=== PATIENT | female | born 1975 | race Caucasian/White ===

== ENCOUNTER 2020-05-26 09:57 | Outpatient (REF) | payer OTHER, SELFPAY ==
--- NOTE | ~2020-05-26 | MM_ITS ---
EXAMINATION: MM SCREENING DIGITAL BREAST TOMOSYNTHESIS, BILATERAL CLINICAL INFORMATION: Screening. Asymptomatic. Age 44. No prior breast imaging. Family history breast cancer, paternal grandmother. The lifetime risk of breast cancer based on the Tyrer-Cuzick Model is 20%. COMPARISON: None (current study represents initial baseline exam). TECHNIQUE: Digital breast tomosynthesis is performed in both the craniocaudal and mediolateral oblique views along with computer-aided detection (CAD). Synthesized 2D images are generated from the tomosynthesis. Additional right CC view is provided. FINDINGS: There are scattered areas of fibroglandular density (ACR BI-RADS breast composition Category b). There are no significant masses, abnormal calcifications, or other abnormalities. The axilla and skin contours are unremarkable. MM/MM tomosynthesis screening BI IMPRESSION: No mammographic evidence of malignancy. ASSESSMENT: BI-RADS 1: Negative RECOMMENDATION: Routine annual mammography screening. This patient's information was entered into a reminder system with a target due date for their next mammogram.
== END 2020-05-26 09:58 | disposition home or self-care (01) ==
LOC: HO.MAMMO 09:57
PROVIDERS: PCP Internal Medicine; Visit Provider Internal Medicine
DX: Z12.31 Encounter for screening mammogram for malignant neoplasm of breast (principal)
CPT/HCPCS: 77063; 77067

== ENCOUNTER 2021-02-07 11:02 | Outpatient (REF) | payer OTHER, SELFPAY ==
[2021-02-07 11:08] LABS: MANUAL DIFF FLAG NO
[2021-02-07 11:38] LABS: Basophils Absolute Auto 0.1 X10*3/uL (0.0-0.2); Basophils Percent Auto 1.7 % (0-2); Eosinophils Absolute Auto 0.2 X10*3/uL (0.0-0.4); Eosinophils Percent Auto 2.8 % (0-4); Hemoglobin 10.1 g/dl (12.0-16.0); Imm Gran Abs Auto 0.01 X10*3/uL (0.00-0.03); Imm Gran Pct Auto 0.2 % (0.0-0.4); Lymphocytes Absolute Auto 1.4 X10*3/uL (1.2-4.9); Lymphocytes Percent Auto 22.8 % (20-40); Mean Corpuscular HGB Conc 30.6 g/dl (31.0-35.0); Mean Corpuscular Volume 78.6 fL (80.0-98.0); Mean Platelet Volume 10.7 fL (9.4-12.3); Monocytes Absolute Auto 0.5 X10*3/uL (0.1-1.2); Monocytes Percent Auto 8.5 % (2-11); Neutrophils Absolute Auto 3.9 x10*3/uL (2.0-8.3); Platelet Count 324 X10*3/uL (160-400); Red Cell Distribution Width 15.8 % (11.0-16.0)
[2021-02-07 11:48] LABS: Appearance Urine HAZY; Color Urine YELLOW; Glucose Urine UA NEG (NEG); Leukocyte Esterase Urine TRACE (NEG); Nitrite Urine NEG (NEG); PH 5.5 (5.0-8.0); Specific Gravity - Urine >= 1.030 (1.005-1.025); Urine Blood NEG (NEG); Urine Ketones NEG (NEG); Urine Protein NEG (NEG-TRACE)
[2021-02-07 12:18] LABS: Bacteria Urine TRACE /LPF; RBC Urine 0 /HPF (0); Squamous Epithelial Cell Urine 1+ /LPF
[2021-02-07 12:58] LABS: Alanine Aminotransferase 13 U/L (0-31); Albumin Level 4.2 g/dL (3.5-5.0); Alkaline Phosphatase 67 U/L (39-117); Anion Gap 13 (12-20); Aspartate Amino Transferase 16 U/L (5-31); Bilirubin Total 0.2 mg/dL (0.0-1.0); Blood Urea Nitrogen 15 mg/dL (9-16); Calcium 9.2 mg/dL (8.4-10.2); Carbon Dioxide 22 mmol/L (22-29); Chloride 106 mmol/L (96-108); Cholesterol 221 mg/dL; Estimated Glomerular Filt Rate > 60; Glucose Random 99 mg/dL (60-115); HDL Cholesterol 45 mg/dL; Iron 22 mcg/dL (30-160); LDL Cholesterol Calculated 150 mg/dl; Percent Iron Saturation 5 % (15-50); Potassium 4.4 mmol/L (3.3-5.1); Sodium 137 mmol/L (135-145); Total Iron Binding Capacity 441 mcg/dL (228-428); Total Protein 7.2 g/dL (6.5-8.0); Triglycerides 132 mg/dL; Unsaturated Iron Binding 419 ug/dL
[2021-02-07 13:19] LABS: TSH reflex Free T4 4.14 uIU/mL (0.32-4.0)
[2021-02-07 14:01] LABS: Reflex LDLD? No
[2021-02-07 14:07] LABS: Free T4 (Free Thyroxine) 0.79 ng/dL (0.71-1.85)
== END 2021-02-07 11:03 | disposition home or self-care (01) ==
LOC: HO.LNP 11:02
PROVIDERS: Visit Provider Internal Medicine
DX: Z00.00 Encounter for general adult medical examination without abnormal findings (principal); R94.5 Abnormal results of liver function studies; E61.1 Iron deficiency; E03.9 Hypothyroidism, unspecified; E78.00 Pure hypercholesterolemia, unspecified
CPT/HCPCS: 80053; 80061; 81001; 83540; 84439; 84443; 85025

== ENCOUNTER 2021-09-15 11:32 | Outpatient (REF) | payer OTHER, SELFPAY ==
[2021-09-15 11:36] LABS: MANUAL DIFF FLAG NO
[2021-09-15 12:38] LABS: Basophils Absolute Auto 0.1 X10*3/uL (0.0-0.2); Basophils Percent Auto 1.5 % (0-2); Eosinophils Absolute Auto 0.3 X10*3/uL (0.0-0.4); Eosinophils Percent Auto 4.3 % (0-4); Hematocrit 36.2 % (37.0-47.0); Hemoglobin 10.3 g/dl (12.0-16.0); Imm Gran Abs Auto 0.01 X10*3/uL (0.00-0.03); Imm Gran Pct Auto 0.1 % (0.0-0.4); Lymphocytes Absolute Auto 1.9 X10*3/uL (1.2-4.9); Lymphocytes Percent Auto 25.9 % (20-40); Mean Corpuscular HGB Conc 28.5 g/dl (31.0-35.0); Mean Corpuscular Hemoglobin 21.7 pg (27.0-33.0); Mean Corpuscular Volume 76.4 fL (80.0-98.0); Mean Platelet Volume 10.8 fL (9.4-12.3); Monocytes Absolute Auto 0.8 X10*3/uL (0.1-1.2); Monocytes Percent Auto 10.4 % (2-11); Neutrophils Absolute Auto 4.3 x10*3/uL (2.0-8.3); Neutrophils Percent Auto 57.8 % (45-73); Platelet Count 479 X10*3/uL (160-400); Red Blood Count 4.74 X10*6/uL (4.20-5.50); Red Cell Distribution Width 17.2 % (11.0-16.0); White Blood Count 7.4 X10*3/uL (4.8-10.8)
[2021-09-15 13:03] LABS: Iron 23 mcg/dL (30-160)
[2021-09-15 13:30] LABS: Percent Iron Saturation 5 % (15-50); Total Iron Binding Capacity 462 mcg/dL (228-428); Unsaturated Iron Binding 439 ug/dL
== END 2021-09-15 11:33 | disposition home or self-care (01) ==
LOC: HO.LNP 11:32
PROVIDERS: Visit Provider Internal Medicine
DX: D50.0 Iron deficiency anemia secondary to blood loss (chronic) (principal)
CPT/HCPCS: 83540; 85025

== ENCOUNTER 2022-03-08 11:23 | Outpatient (REF) | payer OTHER, SELFPAY ==
[2022-03-08 11:28] LABS: MANUAL DIFF FLAG NO
[2022-03-08 11:55] LABS: Basophils Absolute Auto 0.1 X10*3/uL (0.0-0.2); Basophils Percent Auto 1.5 % (0-2); Eosinophils Absolute Auto 0.3 X10*3/uL (0.0-0.4); Eosinophils Percent Auto 3.3 % (0-4); Hematocrit 39.8 % (37.0-47.0); Hemoglobin 12.2 g/dl (12.0-16.0); Imm Gran Abs Auto 0.02 X10*3/uL (0.00-0.03); Imm Gran Pct Auto 0.2 % (0.0-0.4); Lymphocytes Absolute Auto 1.8 X10*3/uL (1.2-4.9); Lymphocytes Percent Auto 21.3 % (20-40); Mean Corpuscular HGB Conc 30.7 g/dl (31.0-35.0); Mean Corpuscular Hemoglobin 24.7 pg (27.0-33.0); Mean Corpuscular Volume 80.7 fL (80.0-98.0); Mean Platelet Volume 11.4 fL (9.4-12.3); Monocytes Absolute Auto 0.8 X10*3/uL (0.1-1.2); Monocytes Percent Auto 9.6 % (2-11); Neutrophils Absolute Auto 5.4 x10*3/uL (2.0-8.3); Neutrophils Percent Auto 64.1 % (45-73); Platelet Count 324 X10*3/uL (160-400); Red Blood Count 4.93 X10*6/uL (4.20-5.50); Red Cell Distribution Width 14.9 % (11.0-16.0); White Blood Count 8.5 X10*3/uL (4.8-10.8)
[2022-03-08 11:57] LABS: Appearance Urine Turbid; Color Urine Yellow; Glucose Urine UA Negative (Negative); Leukocyte Esterase Urine Large (3+) (Negative); Nitrite Urine Negative (Negative); PH 5.5 (5.0-9.0); Specific Gravity - Urine 1.025 (1.005-1.025); UMIC TRIGGER UA YES; Urine Blood Negative (Negative); Urine Ketones Negative (Negative); Urine Protein Trace mg/dL (Neg-Trace)
[2022-03-08 12:01] LABS: Bacteria Urine 4+ (None Seen); Hyaline Casts Urine 0-2 /LPF (0-2); Squamous Epithelial Cell Urine >20 /HPF (0-2); WBC Urine >50 /HPF (0-5)
[2022-03-08 14:04] LABS: Alanine Aminotransferase 13 U/L (0-31); Albumin Level 4.7 g/dL (3.5-5.0); Alkaline Phosphatase 75 U/L (39-117); Anion Gap 13 (12-20); Aspartate Amino Transferase 16 U/L (5-31); Bilirubin Total 0.4 mg/dL (0.0-1.0); Blood Urea Nitrogen 13 mg/dL (9-16); Calcium 9.8 mg/dL (8.4-10.2); Carbon Dioxide 23 mmol/L (22-29); Chloride 105 mmol/L (96-108); Cholesterol 242 mg/dL; Estimated Glomerular Filt Rate > 60; Glucose Fasting 97 mg/dL (60-99); HDL Cholesterol 47 mg/dL; Iron 30 mcg/dL (30-160); LDL Cholesterol Calculated 158 mg/dl; Percent Iron Saturation 7 % (15-50); Potassium 4.1 mmol/L (3.3-5.1); Sodium 137 mmol/L (135-145); TSH reflex Free T4 5.92 uIU/mL (0.32-4.0); Total Iron Binding Capacity 416 mcg/dL (228-428); Triglycerides 188 mg/dL; Unsaturated Iron Binding 386 ug/dL
[2022-03-08 15:31] LABS: Free T4 (Free Thyroxine) 0.84 ng/dL (0.71-1.85)
== END 2022-03-08 11:24 | disposition home or self-care (01) ==
LOC: HO.LNP 11:23
PROVIDERS: Visit Provider Internal Medicine
DX: R31.9 Hematuria, unspecified (principal)
CPT/HCPCS: 80053; 80061; 81001; 83540; 84439; 84443; 85025; 87086

== ENCOUNTER 2022-03-22 17:54 | Outpatient (REF) | payer OTHER, SELFPAY | END 2022-03-22 17:55 | disposition home or self-care (01) | LOC: HO.LNP 17:54 | PROVIDERS: Visit Provider Internal Medicine | DX: R31.9 Hematuria, unspecified (principal) | CPT/HCPCS: 87086 ==

== ENCOUNTER 2022-04-12 12:46 | Outpatient (REF) | payer OTHER, SELFPAY ==
--- NOTE | ~2022-04-12 | MM_ITS ---
EXAMINATION: MM SCREENING DIGITAL BREAST TOMOSYNTHESIS, BILATERAL CLINICAL INFORMATION: Screening. Asymptomatic. The lifetime risk of breast cancer based on the Tyrer-Cuzick Model is 19%. COMPARISON: Mammography: 05/26/2020. TECHNIQUE: Digital breast tomosynthesis is performed in both the craniocaudal and mediolateral oblique views along with computer-aided detection (CAD). Synthesized 2D images are generated from the tomosynthesis. FINDINGS: The breasts are heterogeneously dense, which may obscure small masses (ACR BI-RADS breast composition Category c). No suspicious right breast findings are evident. No suspicious grouping of microcalcifications or abnormal dominant mass. Within the medial aspect of the left breast there is an asymmetric density not definitely seen on prior study for which spot compression view is recommended. On craniocaudal view within the deep aspect of the left breast there is an oval density which is difficult to see but may lie within the superior aspect of the breast, measuring approximately 9 x 7 mm in size and lying approximately 7.5 cm from the nipple. Spot compression view of this as well as possible ultrasound, if it persists, is recommended. MM/MM tomosynthesis screening BI IMPRESSION: Left breast findings for further evaluation, as described. ASSESSMENT: BI-RADS 0: Incomplete - Need additional imaging evaluation. RECOMMENDATION: 1. Additional views of the left breast. 2. Targeted ultrasound if warranted after review of the additional views. 3. Radiology department staff will contact the patient for additional imaging. This patient's information was entered into a reminder system with a target due date for their next mammogram.
[2022-04-12 10:55] LABS: Appearance Urine Cloudy; Color Urine Yellow; Glucose Urine UA Negative (Negative); Leukocyte Esterase Urine Moderate (2+) (Negative); Nitrite Urine Negative (Negative); Specific Gravity - Urine >= 1.030 (1.005-1.025); UMIC TRIGGER UACC YES; Urine Blood Negative (Negative); Urine Ketones Trace mg/dL (Negative); Urine Protein Trace mg/dL (Neg-Trace)
[2022-04-12 11:00] LABS: Bacteria Urine 4+ (None Seen); Hyaline Casts Urine 0-2 /LPF (0-2); UACC Culture Trigger YES; WBC Urine >50 /HPF (0-5)
== END 2022-04-12 12:47 | disposition home or self-care (01) ==
LOC: HO.MAMMO 12:46
PROVIDERS: PCP Internal Medicine; Visit Provider Internal Medicine
DX: R31.9 Hematuria, unspecified (principal); Z12.31 Encounter for screening mammogram for malignant neoplasm of breast
CPT/HCPCS: 77063; 77067; 81001; 87086

== ENCOUNTER 2022-05-02 15:00 | Outpatient (REF) | payer OTHER, SELFPAY ==
--- NOTE | ~2022-05-02 | MM_ITS ---
EXAMINATION: MM DIAGNOSTIC DIGITAL, LEFT WITH TOMOSYNTHESIS US BREAST TARGETED, LEFT CLINICAL INFORMATION: Asymmetric density medial aspect of the left breast as well as circumscribed density deep nipple line region on craniocaudal view and probably superior. COMPARISON: Mammography: 04/12/2022 and 05/26/2020. TECHNIQUE: Digital breast tomosynthesis is performed. 2D images are generated from the tomosynthesis. The following views are obtained: Spot compression craniocaudal view of the left breast and 90 degree mediolateral view. Targeted left breast ultrasound. FINDINGS: The breast parenchyma is a mixture of fibroglandular tissue (ACR BI-RADS breast density category B) MAMMOGRAM: The questioned asymmetric density about the medial aspect of the left breast compresses out and is seen to have represented superimposition of fibroglandular tissue. There is persistence of a partially circumscribed density deep left breast probably superior at approximately 12 o'clock position. ULTRASOUND: Targeted left breast ultrasound demonstrated at the 1 o'clock position, 8 cm from nipple a simple appearing cyst measuring 8 x 3 x 6 mm in size. There is a smooth back wall and increased through sound transmission present. No internal vascularity is seen. The lesion is wider than it is tall. At the 11 o'clock position 7 cm from nipple there appears to be another small cyst measuring 6 x 3 x 5 mm in size with smooth back wall and increased through sound transmission. Results are discussed with the patient at time of visit. MM/MM tomosynthesis added views L IMPRESSION: No mammographic evidence of malignancy. Left breast cysts. ASSESSMENT: BI-RADS 2: Benign RECOMMENDATION: Routine annual mammography screening. This patient's information was entered into a reminder system with a target due date for their next mammogram.
== END 2022-05-02 15:01 | disposition home or self-care (01) ==
LOC: HO.MAMMO 15:00
PROVIDERS: PCP Internal Medicine; Visit Provider Internal Medicine
DX: N64.89 Other specified disorders of breast (principal)
CPT/HCPCS: 76642; 77061; 77065

== ENCOUNTER 2022-07-13 11:58 | Outpatient (REF) | payer OTHER, SELFPAY ==
[2022-07-13 12:25] LABS: Appearance Urine Cloudy; Color Urine Yellow; Glucose Urine UA Negative (Negative); Leukocyte Esterase Urine Moderate (2+) (Negative); Nitrite Urine Negative (Negative); PH 5.5 (5.0-9.0); UMIC TRIGGER UACC YES; Urine Blood Negative (Negative); Urine Ketones Negative (Negative); Urine Protein Negative (Neg-Trace)
[2022-07-13 12:38] LABS: Bacteria Urine 4+ (None Seen); Hyaline Casts Urine 0-2 /LPF (0-2); UACC Culture Trigger YES; WBC Urine 21-50 /HPF (0-5)
[2022-07-13 12:59] LABS: TSH reflex Free T4 6.73 uIU/mL (0.32-4.0)
[2022-07-13 13:40] LABS: Free T4 (Free Thyroxine) 0.79 ng/dL (0.71-1.85)
== END 2022-07-13 11:59 | disposition home or self-care (01) ==
LOC: HO.LNP 11:58
PROVIDERS: Visit Provider Internal Medicine
DX: G43.009 Migraine without aura, not intractable, without status migrainosus (principal); E03.9 Hypothyroidism, unspecified; R31.9 Hematuria, unspecified
CPT/HCPCS: 81001; 84439; 84443; 87086

== ENCOUNTER 2022-08-03 10:27 | Outpatient (REF) | payer OTHER, SELFPAY ==
[2022-08-03 10:29] LABS: MANUAL DIFF FLAG NO
[2022-08-03 10:50] LABS: Basophils Absolute Auto 0.1 X10*3/uL (0.0-0.2); Basophils Percent Auto 1.6 % (0-2); Eosinophils Absolute Auto 0.2 X10*3/uL (0.0-0.4); Eosinophils Percent Auto 3.1 % (0-4); Hematocrit 34.4 % (37.0-47.0); Imm Gran Abs Auto 0.01 X10*3/uL (0.00-0.03); Imm Gran Pct Auto 0.2 % (0.0-0.4); Lymphocytes Absolute Auto 1.3 X10*3/uL (1.2-4.9); Lymphocytes Percent Auto 20.6 % (20-40); Mean Corpuscular Hemoglobin 25.6 pg (27.0-33.0); Mean Corpuscular Volume 80.2 fL (80.0-98.0); Mean Platelet Volume 10.5 fL (9.4-12.3); Monocytes Absolute Auto 0.5 X10*3/uL (0.1-1.2); Monocytes Percent Auto 7.4 % (2-11); Neutrophils Absolute Auto 4.2 x10*3/uL (2.0-8.3); Neutrophils Percent Auto 67.1 % (45-73); Platelet Count 344 X10*3/uL (160-400); Red Blood Count 4.29 X10*6/uL (4.20-5.50); Red Cell Distribution Width 14.7 % (11.0-16.0); White Blood Count 6.2 X10*3/uL (4.8-10.8)
[2022-08-03 11:11] LABS: Appearance Urine Cloudy; Color Urine Yellow; Glucose Urine UA Negative (Negative); Leukocyte Esterase Urine Moderate (2+) (Negative); Nitrite Urine Negative (Negative); PH 5.5 (5.0-9.0); UMIC TRIGGER UA YES; Urine Blood Negative (Negative); Urine Ketones Negative (Negative); Urine Protein Negative (Neg-Trace)
[2022-08-03 11:14] LABS: Iron 38 mcg/dL (30-160); Percent Iron Saturation 11 % (15-50); Total Iron Binding Capacity 360 mcg/dL (228-428); Unsaturated Iron Binding 322 ug/dL
[2022-08-03 11:18] LABS: Bacteria Urine 3+ (None Seen); Hyaline Casts Urine 0-2 /LPF (0-2); WBC Urine 21-50 /HPF (0-5)
== END 2022-08-03 10:28 | disposition home or self-care (01) ==
LOC: HO.LNP 10:27
PROVIDERS: Visit Provider Internal Medicine
DX: D50.0 Iron deficiency anemia secondary to blood loss (chronic) (principal); R31.9 Hematuria, unspecified
CPT/HCPCS: 81001; 81003; 83540; 85025

== ENCOUNTER 2022-09-04 14:43 | Outpatient (REF) | payer OTHER, SELFPAY ==
[2022-09-04 14:48] LABS: MANUAL DIFF FLAG NO
[2022-09-04 14:55] LABS: Basophils Absolute Auto 0.1 X10*3/uL (0.0-0.2); Basophils Percent Auto 1.9 % (0-2); Eosinophils Absolute Auto 0.2 X10*3/uL (0.0-0.4); Eosinophils Percent Auto 2.9 % (0-4); Hematocrit 36.7 % (37.0-47.0); Hemoglobin 11.3 g/dl (12.0-16.0); Imm Gran Abs Auto 0.02 X10*3/uL (0.00-0.03); Imm Gran Pct Auto 0.3 % (0.0-0.4); Lymphocytes Absolute Auto 1.8 X10*3/uL (1.2-4.9); Lymphocytes Percent Auto 25.4 % (20-40); Mean Corpuscular HGB Conc 30.8 g/dl (31.0-35.0); Mean Corpuscular Volume 84.6 fL (80.0-98.0); Mean Platelet Volume 11.4 fL (9.4-12.3); Monocytes Absolute Auto 0.6 X10*3/uL (0.1-1.2); Monocytes Percent Auto 8.5 % (2-11); Neutrophils Absolute Auto 4.3 x10*3/uL (2.0-8.3); Platelet Count 379 X10*3/uL (160-400); Red Blood Count 4.34 X10*6/uL (4.20-5.50); Red Cell Distribution Width 15.4 % (11.0-16.0)
== END 2022-09-04 14:44 | disposition home or self-care (01) ==
LOC: HO.LNP 14:43
PROVIDERS: Visit Provider Internal Medicine
DX: D50.0 Iron deficiency anemia secondary to blood loss (chronic) (principal)
CPT/HCPCS: 85025

== ENCOUNTER 2022-10-15 11:22 | Outpatient (REF) | payer OTHER, SELFPAY ==
[2022-10-15 11:52] LABS: Appearance Urine Clear; Color Urine Yellow; Glucose Urine UA Negative (Negative); Leukocyte Esterase Urine Large (3+) (Negative); Nitrite Urine Negative (Negative); PH 6.5 (5.0-9.0); Specific Gravity - Urine 1.015 (1.005-1.025); UMIC TRIGGER UACC YES; Urine Blood Negative (Negative); Urine Ketones Negative (Negative); Urine Protein Negative (Neg-Trace)
[2022-10-15 12:17] LABS: Bacteria Urine 2+ (None Seen); Hyaline Casts Urine 0-2 /LPF (0-2); UACC Culture Trigger YES; WBC Urine 0-5 /HPF (0-5)
== END 2022-10-15 11:23 | disposition home or self-care (01) ==
LOC: HO.LNP 11:22
PROVIDERS: Visit Provider Internal Medicine
DX: R31.9 Hematuria, unspecified (principal)
CPT/HCPCS: 81001; 87086

== ENCOUNTER 2022-11-12 10:40 | Outpatient (REF) | payer OTHER, SELFPAY ==
[2022-11-12 10:43] LABS: MANUAL DIFF FLAG NO
[2022-11-12 10:53] LABS: Basophils Absolute Auto 0.1 X10*3/uL (0.0-0.2); Basophils Percent Auto 1.7 % (0-2); Eosinophils Absolute Auto 0.3 X10*3/uL (0.0-0.4); Eosinophils Percent Auto 3.8 % (0-4); Hematocrit 38.7 % (37.0-47.0); Hemoglobin 12.5 g/dl (12.0-16.0); Imm Gran Abs Auto 0.03 X10*3/uL (0.00-0.03); Imm Gran Pct Auto 0.4 % (0.0-0.4); Lymphocytes Absolute Auto 1.9 X10*3/uL (1.2-4.9); Lymphocytes Percent Auto 23.1 % (20-40); Mean Corpuscular HGB Conc 32.3 g/dl (31.0-35.0); Mean Corpuscular Volume 83.6 fL (80.0-98.0); Monocytes Absolute Auto 0.7 X10*3/uL (0.1-1.2); Monocytes Percent Auto 8.9 % (2-11); Neutrophils Absolute Auto 5.1 x10*3/uL (2.0-8.3); Neutrophils Percent Auto 62.1 % (45-73); Platelet Count 352 X10*3/uL (160-400); Red Blood Count 4.63 X10*6/uL (4.20-5.50); Red Cell Distribution Width 14.6 % (11.0-16.0); White Blood Count 8.2 X10*3/uL (4.8-10.8)
[2022-11-12 11:18] LABS: Iron 59 mcg/dL (30-160); Percent Iron Saturation 15 % (15-50); Total Iron Binding Capacity 397 mcg/dL (228-428); Unsaturated Iron Binding 338 ug/dL
[2022-11-12 11:32] LABS: TSH reflex Free T4 6.85 uIU/mL (0.32-4.0)
[2022-11-12 12:16] LABS: Free T4 (Free Thyroxine) 0.68 ng/dL (0.71-1.85)
== END 2022-11-12 10:41 | disposition home or self-care (01) ==
LOC: HO.LNP 10:40
PROVIDERS: Visit Provider Internal Medicine
DX: D50.0 Iron deficiency anemia secondary to blood loss (chronic) (principal); E03.9 Hypothyroidism, unspecified
CPT/HCPCS: 83540; 84439; 84443; 85025

== ENCOUNTER 2023-03-19 11:07 | Outpatient (REF) | payer OTHER, SELFPAY ==
[2023-03-19 11:14] LABS: MANUAL DIFF FLAG NO
[2023-03-19 11:59] LABS: Basophils Absolute Auto 0.1 X10*3/uL (0.0-0.2); Basophils Percent Auto 1.5 % (0-2); Eosinophils Absolute Auto 0.3 X10*3/uL (0.0-0.4); Eosinophils Percent Auto 3.6 % (0-4); Hematocrit 38.1 % (37.0-47.0); Hemoglobin 11.8 g/dl (12.0-16.0); Imm Gran Abs Auto 0.02 X10*3/uL (0.00-0.03); Imm Gran Pct Auto 0.2 % (0.0-0.4); Lymphocytes Absolute Auto 2.1 X10*3/uL (1.2-4.9); Lymphocytes Percent Auto 23.8 % (20-40); Mean Corpuscular Hemoglobin 26.7 pg (27.0-33.0); Mean Corpuscular Volume 86.2 fL (80.0-98.0); Mean Platelet Volume 11.6 fL (9.4-12.3); Monocytes Absolute Auto 0.8 X10*3/uL (0.1-1.2); Monocytes Percent Auto 9.5 % (2-11); Neutrophils Absolute Auto 5.4 x10*3/uL (2.0-8.3); Neutrophils Percent Auto 61.4 % (45-73); Platelet Count 411 X10*3/uL (160-400); Red Blood Count 4.42 X10*6/uL (4.20-5.50); Red Cell Distribution Width 13.3 % (11.0-16.0); White Blood Count 8.7 X10*3/uL (4.8-10.8)
[2023-03-19 12:02] LABS: Appearance Urine Cloudy; Color Urine Yellow; Glucose Urine UA Negative (Negative); Leukocyte Esterase Urine Small (1+) (Negative); Nitrite Urine Negative (Negative); Specific Gravity - Urine >= 1.030 (1.005-1.025); UMIC TRIGGER UACC YES; Urine Blood Negative (Negative); Urine Ketones Negative (Negative); Urine Protein Negative (Neg-Trace)
[2023-03-19 12:05] LABS: Bacteria Urine Trace (None Seen); Hyaline Casts Urine 0-2 /LPF (0-2); RBC Urine 0-2 /HPF (0-2); UACC Culture Trigger YES; WBC Urine >50 /HPF (0-5)
[2023-03-19 12:17] LABS: Alanine Aminotransferase 28 U/L (0-31); Albumin Level 4.2 g/dL (3.5-5.0); Alkaline Phosphatase 81 U/L (39-117); Anion Gap 15 (12-20); Aspartate Amino Transferase 31 U/L (5-31); Bilirubin Total 0.2 mg/dL (0.0-1.0); Blood Urea Nitrogen 10 mg/dL (9-16); Calcium 9.5 mg/dL (8.4-10.2); Carbon Dioxide 25 mmol/L (22-29); Chloride 106 mmol/L (96-108); Cholesterol 192 mg/dL (<200); Estimated Glomerular Filt Rate > 60; Glucose Fasting 99 mg/dL (60-99); HDL Cholesterol 36 mg/dL (>40); Iron 32 mcg/dL (30-160); LDL Cholesterol Calculated 120 mg/dL (<100); Percent Iron Saturation 10 % (15-50); Potassium 4.1 mmol/L (3.3-5.1); Sodium 142 mmol/L (135-145); Total Iron Binding Capacity 331 mcg/dL (228-428); Triglycerides 184 mg/dL (<150); Unsaturated Iron Binding 299 ug/dL
[2023-03-19 12:33] LABS: TSH reflex Free T4 3.99 uIU/mL (0.32-4.0)
== END 2023-03-19 11:08 | disposition home or self-care (01) ==
LOC: HO.LNP 11:07
PROVIDERS: Visit Provider Internal Medicine
DX: Z00.00 Encounter for general adult medical examination without abnormal findings (principal); E03.9 Hypothyroidism, unspecified; D50.0 Iron deficiency anemia secondary to blood loss (chronic); E78.00 Pure hypercholesterolemia, unspecified; R82.90 Unspecified abnormal findings in urine
CPT/HCPCS: 80053; 80061; 81001; 83540; 84443; 85025; 87086; 87147

== ENCOUNTER 2023-04-23 10:26 | Outpatient (REF) | payer OTHER, SELFPAY ==
--- NOTE | ~2023-04-23 | MM_ITS ---
EXAMINATION: MM SCREENING DIGITAL BREAST TOMOSYNTHESIS, BILATERAL CLINICAL INFORMATION: Screening. Asymptomatic. COMPARISON: Mammography: This study is compared with prior exams dating back to 2020. TECHNIQUE: Digital breast tomosynthesis is performed in both the craniocaudal and mediolateral oblique views along with computer-aided detection (CAD). Synthesized 2D images are generated from the tomosynthesis. FINDINGS: The breasts are heterogeneously dense, which may obscure small masses (ACR BI-RADS breast composition Category c). There are no significant masses, abnormal calcifications, or other abnormalities. MM/MM tomosynthesis screening BI IMPRESSION: No mammographic evidence of malignancy. ASSESSMENT: BI-RADS BI-RADS 1 - Negative RECOMMENDATION: Routine annual mammography screening. 1 year F/U This examination should not preclude the clinical evaluation of a suspicious palpable abnormality. This patient's information was entered into a reminder system with a target due date for their next mammogram.
== END 2023-04-23 10:27 | disposition home or self-care (01) ==
LOC: HO.MAMMO 10:26
PROVIDERS: PCP Internal Medicine; Visit Provider Internal Medicine
DX: Z12.31 Encounter for screening mammogram for malignant neoplasm of breast (principal)
CPT/HCPCS: 77063; 77067

== ENCOUNTER → 2023-04-23 10:30 | Outpatient (BNV) | payer OTHER, SELFPAY | PROVIDERS: PCP Internal Medicine; Visit Provider Radiology Diagnostic Radiology | DX: Z12.31 Encounter for screening mammogram for malignant neoplasm of breast (principal) | CPT/HCPCS: 77063; 77067 ==

== ENCOUNTER 2024-03-26 11:32 | Outpatient (REF) | payer OTHER, SELFPAY ==
[2024-03-26 11:35] LABS: MANUAL DIFF FLAG NO
[2024-03-26 11:45] LABS: Basophils Absolute Auto 0.2 X10*3/uL (0.0-0.2); Basophils Percent Auto 1.8 % (0-2); Eosinophils Absolute Auto 0.5 X10*3/uL (0.0-0.4); Eosinophils Percent Auto 5.5 % (0-4); Hematocrit 28.5 % (37.0-47.0); Hemoglobin 8.3 g/dl (12.0-16.0); Imm Gran Abs Auto 0.04 X10*3/uL (0.00-0.03); Imm Gran Pct Auto 0.5 % (0.0-0.4); Lymphocytes Absolute Auto 1.5 X10*3/uL (1.2-4.9); Lymphocytes Percent Auto 17.4 % (20-40); Mean Corpuscular HGB Conc 29.1 g/dl (31.0-35.0); Mean Corpuscular Hemoglobin 21.7 pg (27.0-33.0); Mean Corpuscular Volume 74.6 fL (80.0-98.0); Mean Platelet Volume 11.9 fL (9.4-12.3); Monocytes Absolute Auto 0.7 X10*3/uL (0.1-1.2); Monocytes Percent Auto 8.3 % (2-11); Neutrophils Absolute Auto 5.8 x10*3/uL (2.0-8.3); Neutrophils Percent Auto 66.5 % (45-73); Platelet Count 460 X10*3/uL (160-400); Red Blood Count 3.82 X10*6/uL (4.20-5.50); White Blood Count 8.7 X10*3/uL (4.8-10.8)
[2024-03-26 11:52] LABS: Appearance Urine Turbid; Color Urine Yellow; Glucose Urine UA Negative (Negative); Leukocyte Esterase Urine Small (1+) (Negative); Nitrite Urine Negative (Negative); PH 5.5 (5.0-9.0); Specific Gravity - Urine >= 1.030 (1.005-1.025); UMIC TRIGGER UACC YES; Urine Blood Negative (Negative); Urine Ketones Negative (Negative); Urine Protein Trace mg/dL (Neg-Trace)
[2024-03-26 12:14] LABS: Bacteria Urine 2+ (None Seen); Hyaline Casts Urine 0-2 /LPF (0-2); RBC Urine 0-2 /HPF (0-2); Squamous Epithelial Cell Urine >20 /HPF (0-2); UACC Culture Trigger YES
[2024-03-26 12:23] LABS: Alanine Aminotransferase 57 U/L (0-31); Albumin Level 3.9 g/dL (3.5-5.0); Alkaline Phosphatase 80 U/L (39-117); Anion Gap 12 (12-20); Aspartate Amino Transferase 50 U/L (5-31); Bilirubin Total 0.3 mg/dL (0.0-1.0); Blood Urea Nitrogen 10 mg/dL (9-16); Calcium 8.3 mg/dL (8.4-10.2); Carbon Dioxide 22 mmol/L (22-29); Chloride 108 mmol/L (96-108); Cholesterol 197 mg/dL (<200); Estimated Glomerular Filt Rate > 60; Glucose Fasting 101 mg/dL (60-99); HDL Cholesterol 44 mg/dL (>40); Iron 15 mcg/dL (30-160); LDL Cholesterol Calculated 117 mg/dL (<100); Percent Iron Saturation 4 % (15-50); Potassium 4.1 mmol/L (3.3-5.1); Sodium 138 mmol/L (135-145); TSH reflex Free T4 5.01 uIU/mL (0.32-4.0); Total Iron Binding Capacity 364 mcg/dL (228-428); Total Protein 7.3 g/dL (6.5-8.0); Triglycerides 181 mg/dL (<150); Unsaturated Iron Binding 349 ug/dL
--- OUTSIDE RECORDS SUMMARY | 2024-03-26 12:42 | XMS_ITS ---
Author Organization Moise Mcbride MD Address [address] [place], [place] [id number] Care Team Providers Care Restaurant Worker Name Role Phone Moise Mcbride Primary Care Provider RESULTS Component Value Reference Range Notes Complete Blood Count Auto Di ff (Not yet reviewed by provider) Interpretation: Performing Lab:[facility], [address] [place] [phone] Notes/Report: White Blood Count 8.7 4.8-10.8 X10*3/uL Red Blood Count 3.82 4.20-5.50 X10*6/uL Hemoglobin 8.3 12.0-16.0 g/dl Hematocrit 28.5 37.0-47.0 % Mean Corpuscular Volume 74.6 80.0-98.0 fL Mean Corpuscular Hemoglobin 21.7 27.0-33.0 pg Mean Corpuscular HGB Conc 29.1 31.0-35.0 g/dl Red Cell Distribution Width 15.0 11.0-16.0 % Platelet Count 460 160-400 X10*3/uL Mean Platelet Volume 11.9 9.4-12.3 fL Neutrophils Percent Auto 66.5 45-73 % Imm Gran Pct Auto 0.5 0.0-0.4 % Lymphocytes Percent Auto 17.4 20-40 % Monocytes Percent Auto 8.3 2-11 % Eosinophils Percent Auto 5.5 0-4 % Basophils Percent Auto 1.8 0-2 % NRBC Pct Auto 0.0 0.0-0.2 /100WBC Neutrophils Absolute Auto 5.8 2.0-8.3 x10*3/u L Imm Gran Abs Auto 0.04 0.00-0.03 X10*3/uL Lymphocytes Absolute Auto 1.5 1.2-4.9 X10*3/u L Monocytes Absolute Auto 0.7 0.1-1.2 X10*3/uL Eosinophils Absolute Auto 0.5 0.0-0.4 X10*3/u L Basophils Absolute Auto 0.2 0.0-0.2 X10*3/uL NRBC Abs Auto 0.000 0.0-0.012 X10*3/uL Comprehensive Mineral Point. Panel Fa st (Not yet reviewed by provider) Interpretation: Performing Lab:[facility], [address] [place] [phone] Notes/Report: Sodium 138 135-145 mmol/L Potassium 4.1 3.3-5.1 mmol/L Chloride 108 96-108 mmol/L Carbon Dioxide 22 22-29 mmol/L Anion Gap 12 12-20 Blood Urea Nitrogen 10 9-16 mg/dL Creatinine 0.77 0.5-1.4 mg/dL Estimated Glomerular Filt Rate > 60 Chronic Kidney Disease: Estimated GFR < 60 mL/min/1.73m2 Severe Kidney Disease: Estimated GFR < 15 mL/min/1.73m2 Glucose Fasting 101 60-99 mg/dL A fasting glucose from 100-125 mg/dl is considered impaired (pre-diabetes). Calcium 8.3 8.4-10.2 mg/dL Bilirubin Total 0.3 0.0-1.0 mg/dL Aspartate Amino Transferase 50 5-31 U/L Alanine Aminotransferase 57 0-31 U/L Total Protein 7.3 6.5-8.0 g/dL Albumin Level 3.9 3.5-5.0 g/dL Alkaline Phosphatase 80 39-117 U/L IRON PROFILE (Not yet review ed by provider) Interpretation: Performing Lab:[facility], [address] [place] [phone] Notes/Report: Iron 15 30-160 mcg/dL Total Iron Binding Capacity 364 228-428 mcg/d L Percent Iron Saturation 4 15-50 % Unsaturated Iron Binding 349 Lipid Panel (Not yet reviewe d by provider) Interpretation: Performing Lab:[facility], [address] [place] [phone] Notes/Report: Triglycerides 181 <150 mg/dL Desirable Triglyceride: less than 150 mg/dL Borderline High Triglyceride 150-199 mg/dL High Triglyceride: 200-499 mg/dL Very High Triglyceride: greater than or equal to 5OO mg/dL Cholesterol 197 <200 mg/dL Desirable Cholesterol: less than 200 mg/dL Borderline High Cholesterol: 200-239 mg/dL High Cholesterol: greater than 239 mg/dL LDL Cholesterol Calculated 117 <100 mg/dL Desirable LDL: less than 100 mg/dL Near Optimal/Above Optimal LDL: 110-129 mg/dL Borderline High LDL: 130-159 mg/dL High LDL: 160-189 mg/dL Very High LDL: greater than or equal to 190 mg/dL HDL Cholesterol 44 >40 mg/dL Desirable HDL: greater than 40 mg/dL Note: This HDL assay may give artificially low results in patients with liver disease. TSH reflex Free T4 (Not yet reviewed by provider) Interpretation: Performing Lab:[facility], [address] [place] [phone] Notes/Report: TSH reflex Free T4 5.01 0.32-4.0 uIU/mL UA ClnCatch+Micro w/rflx Cul t (Not yet reviewed by provider) Interpretation: Performing Lab:[facility], [address] [place] [phone] Notes/Report: Urine, Clean Catch Color Urine Yellow Appearance Urine Turbid PH 5.5 5.0-9.0 Glucose Urine UA Negative Negative mg/dL Urine Blood Negative Negative Specific Johnson - Urine >= 1.030 1.005-1.025 Urine Protein Trace Neg-Trace mg/dL Urine Ketones Negative Negative mg/dL Nitrite Urine Negative Negative Leukocyte Esterase Urine Small (1+) Negative RBC Urine 0-2 0-2 /HPF WBC Urine 6-10 0-5 /HPF Squamous Epithelial Cell Urine >20 0-2 /HPF Bacteria Urine 2+ None Seen Hyaline Casts Urine 0-2 0-2 /LPF REASON FOR VISIT FASTING LABS Encounters Encounter Location Date Provider Diagnosis Moise Mcbride MD [address] [place] [address] Drive [address] [place], [place] [phone] 03/26/2024 Moise Mcbride Blood tests for routine general physical examination Z00.00 ; Acquired hypothyroidism E03.9 ; Iron deficiency anemia due to chronic blood loss D50.0 and Elevated LDL cholesterol level E78.00 ASSESSMENTS Encounter Date Diagnosis Assessment Notes Treatment Notes Treatment Clinical Notes 03/26/2024 Blood tests for routine general physical examination (ICD-10 - Z00.00) 03/26/2024 Acquired hypothyroidism (ICD-10 - E03.9) 03/26/2024 Iron deficiency anemia due to chronic blood loss (ICD-10 - D50.0) 03/26/2024 Elevated LDL cholesterol level (ICD-10 - E78.00) PLAN OF TREATMENT Pending Test Test Name Order Date Complete Blood Count Auto Diff 5 Comprehensive Mineral Point. Panel Fast IRON PROFILE 03/26/2024 Lipid Panel 03/26/2024 TSH reflex Free T4 03/26/2024 UA ClnCatch+Micro w/rflx Cult 03/26/2024 Next Appt Details Provider Name:Moise morrissey, 04/02/2024 09:30:00 AM, [address], [address], [place], [place], [phone],
--- OUTSIDE RECORDS SUMMARY | 2024-03-26 12:42 | XMS_ITS ---
Author Organization Moise Mcbride MD Address [address] [place] [phone] Care Team Providers Care Dining Room Coordinator Name Role Phone Moise Mcbride Primary Care Provider [phone] REASON FOR VISIT RF Imitrex MEDICATIONS Medication SIG (Take, Route, Frequency, Duration) Notes Start Date End Date Status Imitrex 50 MG 1 tablet at least 2 hours between doses as needed Orally Twice a day as needed for 10 days 03/22/2022 Active Encounters Encounter Location Date Provider Diagnosis Moise Mcbride MD [address] [place] [phone] 09/13/2023 Moise Mcbride Migraine without aura and without status migrainosus, not intractable G43.009 ASSESSMENTS Encounter Date Diagnosis Assessment Notes Treatment Notes Treatment Clinical Notes 09/13/2023 Migraine without aura and without status migrainosus, not intractable (ICD-10 - G43.009) PLAN OF TREATMENT Medication Medication Name Sig Start Date Stop Date Notes Imitrex 50 MG 1 tablet at least 2 hours between doses as needed Orally Twice a day as needed for 10 days 03/22/2022 Next Appt Details Provider Name:Moise morrissey, 04/02/2024 09:30:00 AM, [address] [facility], [address] [facility], [place], [place], [phone],
--- OUTSIDE RECORDS SUMMARY | 2024-03-26 12:43 | XMS_ITS ---
Author Organization Moise Mcbride MD Address [address] [place], [place] [phone] Care Team Providers Care Tray Server Name Role Phone Moise Mcbride Primary Care Provider ALLERGIES Allergen (clinical drug ingredient) Drug/Non Drug Allergy documented on EMR Reaction Allergy Type Onset Date Status tape from (uncoded) rash Allergy Active seasonal allergies (uncoded) cough/phlegm Allergy Active REASON FOR VISIT ANNUAL EXAM, NO Covid symptoms except has had a cough x 3 weeks MEDICATIONS Medication SIG (Take, Route, Frequency, Duration) Notes Start Date End Date Status Albuterol Sulfate HFA 108 (90 Base) MCG/ACT 1 puff as needed Inhalation every 4 hrs for 30 days 03/29/2023 Active Ocuflox 0.3 % as directed Ophthalm ic 2 drops rt eye 4 times a day for 7 days 07/17/2022 Not-Taking Kurvelo 0.15-30 MG-MCG 1 tablet Orally O nce a day for 28 day(s) Active Levothyroxine Sodium 125 MCG 1 tablet Orally Once a day for 90 days Not-Taking Imitrex 50 MG 1 tablet at least 2 hours between doses as needed Orally Twice a day as needed for 10 days 03/22/2022 Not-Taking SOCIAL HISTORY Tobacco Use: Social History Observation Description Date Details (start date - stop date) Never Smoker NA - NA Sex Assigned At : Social History Observation Description Sex Assigned At Unknown Tobacco Use/Smoking Question Answer Notes Patient is a nonsmoker Additional Findings: Tobacco Non-User Cu rrent non-smoker, currently using no form of tobacco Alcohol Screen Question Answer Notes Did you have a drink contain ing alcohol in the past year? Yes How often did you have a dri nk containing alcohol in the past year? 2 to 4 times a month (2 points) How many drinks did you have on a typical day when you were drinking in the past year? 1 or 2 drinks (0 point) How often did you have 6 or more drinks on one occasion in the past year? Never (0 point) Points 2 Interpretation Negative VITAL SIGNS BMI 25.61 kg/m2 03/29/2023 Blood pressure systolic 112 mm Hg 03/29/19 24 Blood pressure diastolic 70 mm Hg 024 Height 67.5 in 03/29/2023 Weight 166 lbs 03/29/2023 weight is up 11 pounds since 08-03-22 Encounters Encounter Location Date Provider Diagnosis Moise Mcbride MD [address] [place] [address] [place] [phone] 03/29/2023 Moise Mcbride Migraine without aur a and without status migrainosus, not intractable G43.009 ; Annual physical exam Z00.00 ; Iron deficiency anemia due to chronic blood loss D50.0 ; Chronic cough R05.3 ; Acquired hypothyroidism E03.9 and Depression screening Z13.31 ASSESSMENTS Encounter Date Diagnosis Assessment Notes Treatment Notes Treatment Clinical Notes 03/29/2023 Migraine without aur a and without status migrainosus, not intractable (ICD-10 - G43.009) immetrex works great, will continue current regiment 03/29/2023 Annual physical exam (ICD-10 - Z00.00) labs reviewed and discussed with patient 03/29/2023 Iron deficiency anemia due to chronic blood loss (ICD-10 - D50.0) restart her iron. not eating ice 03/29/2023 Chronic cough (ICD-1 0 - R05.3) if not better in 2 weeks to come back 03/29/2023 Acquired hypothyroidism (ICD-10 - E03.9) 03/29/2023 Depression screening (ICD-10 - Z13.31) negative screen PLAN OF TREATMENT Medication Medication Name Sig Start Date Stop Date Notes Albuterol Sulfate HFA 108 (9 0 Base) MCG/ACT 1 puff as needed Inhalation every 4 hrs for 30 days 03/29/2023 Treatment Notes Assessment Notes Migraine without aura and wi thout status migrainosus, not intractable immetrex works great, will continue current regiment Annual physical exam labs reviewed and d iscussed with patient Iron deficiency anemia due t o chronic blood loss restart her iron. not eating ice Chronic cough if not better in 2 w eeks to come back Depression screening negative screen Next Appt Details Follow Up: 1 Year, Reason: Provider Name:Moise salasr, 04/02/2024 09:30:00 AM, [address], [address], [place], [place], [phone], Progress Notes * Examination Category Sub-Category Detail Notes General Examination GENERAL APPEARANCE: well dev eloped, well nourished, in no acute distress HEAD: normocephalic, atrau matic EYES: pupils equal, round, reactive to light and accommodation, sclera non- icteric EARS: normal THROAT: clear NECK/THYROID: neck supple, full ra nge of motion, no cervical lymphadenopathy, no bruits HEART: regular rate and rhy thm, S1, S2 normal, no murmurs LUNGS: clear to auscultatio n bilaterally ABDOMEN: soft, nontender, non distended, bowel sounds present, normal, no organomegaly , no masses palpable NEUROLOGIC: nonfocal, motor stre ngth normal upper and lower extremities, sensory exam intact SKIN: warm and dry, no jayson picious lesions EXTREMITIES: no clubbing, cyanosi s, or edema BREASTS: done by [employer] RECTAL EXAM: done by [employer] FEMALE GENITOURINARY: done by [employer] ORAL CAVITY: mucosa moist History and Physical Notes * HPI (History of Present Illness) Category Sub-Category Detail Notes Depression Screening PHQ-9 Little inte rest or pleasure in doing things: Not at all Feeling down, depressed, or hopeless: No t at all Trouble falling or staying asleep, or sl eeping too much: Not at all Feeling tired or having little energy: N ot at all Poor appetite or overeating: Not at all Feeling bad about yourself o r that you are a failure, or have let yourself or your family down: Not at all Trouble concentrating on thi ngs, such as reading the newspaper or watching television: Not at all Moving or speaking so slowly that other people could have noticed; or the opposite, being so fidgety or restless that you have been moving around a lot more than usual: Not at all Thoughts that you would be b cris off or of hurting yourself in some way: Not at all Total Score: 0 Interpretation and Intervention Depression Louise friend Findings: Negative Follow-Up for Depression: : review of PH Q-9 found negative result, no follow-up needed SDOH Questions SDOH Questions In the past year have you been worried about losing housing?: No In the past year have you or any family members you live with been unable to get any of the following when it was really needed? Check all that apply:: None Fall Risk History Have you had any falls with injury in the past year?: No Have you had two or more falls in the st year?: No Communication Needs Communication Needs Does the patient have a hearing impairment: No Does the patient have a vision impairmen t?: Yes ?If yes, what is the vision impairment?: Glasses Does the patient have a cognition impair ment?: No
--- OUTSIDE RECORDS SUMMARY | 2024-03-26 12:43 | XMS_ITS | Patient Health Record ---
Author Organization Moise Mcbride MD Address [address] [place], [place] [id number] Care Team Providers Care Elephant Tamer Name Role Phone Moise Mcbride Primary Care Provider ALLERGIES Allergen (clinical drug ingredient) Drug/Non Drug Allergy documented on EMR Reaction Allergy Type Onset Date Status tape from (uncoded) rash Allergy Active seasonal allergies (uncoded) cough/phlegm Allergy Active RESULTS Component Value Reference Range Notes MM tomosynthesis screening B I Reviewed date:05/17/2023 11:56:25 AM Interpretation: Performing Lab: Notes/Report: [address] [place] [address] Mammography Report Signed Patient: Celestina Fernandes MR#: [id number] 23 : 1975 Acct:[id number] Age/Sex: 47 / F ADM Date: 04/23/23 Loc: HO.MAMMO Attending Dr: Moise Mcbride MD Ordering Physician: Moise Mcbride MD Results: 1Ne gative Date of Service: 04/23/23 Follow Up: 1 Year From Orig ina Mammogram Procedure(s): MM tomosynthesis screening BI Accession Number(s): [id number] cc: Moise Mcbride MD EXAMINATION: MM SCREENING DIGITAL BREAST TOMOSYNTHESIS, BILATERAL CLINICAL INFORMATION: Screening. Asymptomatic. COMPARISON: Mammography: This study is compared with prior exams dating back to 2020. TECHNIQUE: Digital breast tomosynthesis is performed in both the craniocaudal and mediolateral oblique views along with computer-aided detection (CAD). Synthesized 2D images are generated from the tomosynthesis. FINDINGS: The breasts are heterogeneously dense, which may obscure small masses (ACR BI-RADS breast composition Category c). There are no significant masses, abnormal calcifications, or other abnormalities. MM/MM tomosynthesis screening BI IMPRESSION: No mammographic evidence of malignancy. ASSESSMENT: BI-RADS BI-RADS 1 - Negative RECOMMENDATION: Routine annual mammography screening. 1 year F/U This examination should not preclude the clinical evaluation of a suspicious palpable abnormality. This patient's information was entered into a reminder system with a target due date for their next mammogram. Dictated By: Coby Ceron MD Signed By: <Electronically signed by Coby Ceron MD in OV> 05/16/232033 DD/ 1045 TD/TT: Tongue And Groove Machine Operator: Complete Blood Count Auto Di ff (Not yet reviewed by provider) Interpretation: Performing Lab:[facility], [address] [place] [phone] Notes/Report: White Blood Count 8.7 4.8-10.8 X10*3/uL [...] NRBC Abs Auto 0.000 0.0-0.012 X10*3/uL Comprehensive [place]. Panel Fa (Not yet reviewed by provider) Interpretation: Performing Lab:[address] [address] Notes/Report: Sodium 138 135-145 mmol/L Potassium 4.1 [...] yet review ed by provider) Interpretation: Performing Lab:[address] [address] Notes/Report: Iron 15 30-160 mcg/dL Total Iron Binding Capacity 364 228-428 mcg/d L Percent Iron Saturation 4 15-50 % Unsaturated Iron Binding 349 Lipid Panel (Not yet reviewe d by provider) Interpretation: Performing Lab:[facility], [address] [place] [phone] Notes/Report: Triglycerides 181 <150 mg/dL Desirable Triglyceride: [...] (Not yet reviewed by provider) Interpretation: Performing Lab:[facility], [address] [place] [phone] Notes/Report: TSH reflex Free T4 5.01 0.32-4.0 uIU/mL UA ClnCatch+Micro w/rflx Cul t (Not yet reviewed by provider) Interpretation: Performing Lab:[facility], [address] [place] [phone] Notes/Report: Urine, Clean Catch Color Urine Yellow Appearance Urine Turbid PH 5.5 5.0-9.0 Glucose Urine UA Negative Negative mg/dL Urine Blood Negative Negative Specific Freedom - Urine >= 1.030 1.005-1.025 Urine Protein Trace Neg-Trace mg/dL Urine Ketones Negative Negative mg/dL Nitrite Urine Negative Negative Leukocyte Esterase Urine Small (1+) Negative RBC Urine 0-2 0-2 /HPF WBC Urine 6-10 0-5 /HPF Squamous Epithelial Cell Urine >20 0-2 /HPF Bacteria Urine 2+ None Seen Hyaline Casts Urine 0-2 0-2 /LPF REASON FOR REFERRAL No Information MEDICATIONS Medication SIG (Take, Route, Frequency, Duration) Notes Start Date End Date Status Albuterol Sulfate HFA 108 (90 Base) MCG/ACT 1 puff as needed Inhalation every 4 hrs for 30 days 03/29/2023 Active Imitrex 50 MG 1 tablet at least 2 hours between doses as needed Orally Twice a day as needed for 10 days 03/22/2022 Active Ocuflox 0.3 % as directed Ophthalm ic 2 drops rt eye 4 times a day for 7 days 07/17/2022 Not-Taking Kurvelo 0.15-30 MG-MCG 1 tablet Orally O nce a day for 28 day(s) Active Levothyroxine Sodium 125 MCG 1 tablet Orally Once a day for 90 days Not-Taking IMMUNIZATIONS Vaccine Route Administration Date Status Comme nts Fluarix Quadrivalent IM Intramuscular 12/27/2015 Administe red Fluarix Quadrivalent Unknown 12/03/2017 Administered Fluarix Quadrivalent IM Intramuscular 01/20/2019 Administe red SARS-COV-2 Moderna Unknown 07/16/2020 Administered SARS-COV-2 Moderna Unknown 06/17/2020 Administered Fluarix Quadrivalent IM Intramuscular 12/30/2020 Administe red Fluarix Quadrivalent IM Intramuscular 03/08/2022 Administe red SOCIAL HISTORY Tobacco Use: Social History Observation [...] Never (0 point) Points 2 Interpretation Negative PROBLEMS Problem Type ICD Code Onset Dates Problem Status W/U Status Risk SNOMED Code Notes Problem Lumbar disc disease (M51.9) Active confirmed 492848868 Problem Acquired hypothyroidism (E03.9) Active confirmed 962461186 Problem Migraine without aura and without status migrainosus, not intractable (G43.009) Active confirmed 915055544 Problem Iron deficiency anemia due to chronic blood loss (D50.0) Active confirmed 92104406 Problem Crohns colitis, without complications (K50.10) Active confirmed 16732853 Problem Elevated LDL cholesterol level (E78.00) Active confirmed Pure hypercholesterolemia (953061724) Problem Pagophagia (F50.89) Active confirmed 14736430 VITAL SIGNS Blood pressure diastolic 70 mm Hg 03/29/2023 allyssa ght is up 11 pounds since 08-03-22 Height 67.5 in 03/29/2023 weight is up 11 pounds since 08-03-22 Blood pressure systolic 112 mm Hg 03/29/2023 weig ht is up 11 pounds since 08-03-22 Weight 166 lbs 03/29/2023 weight is up 11 pounds since 08-03-22 BMI 25.61 kg/m2 03/29/2023 weight is up 11 pounds since 08-03-22 Encounters Encounter Location Date Provider Diagnosis Moise Mcbride MD [address] [place] [address] Drive [address] [place] [id number] 03/29/2023 Moise Mcbride Migraine without aur a and without status migrainosus, not intractable G43.009 ; Annual physical exam Z00.00 ; Iron deficiency anemia due to chronic blood loss D50.0 ; Chronic cough R05.3 ; Acquired hypothyroidism E03.9 and Depression screening Z13.31 Moise Mcbride MD [address] [place] [address] Drive [address] [place] [id number] 03/26/2024 Moise Mcbride Blood tests for routine general physical examination Z00.00 ; Acquired hypothyroidism E03.9 ; Iron deficiency anemia due to chronic blood loss D50.0 and Elevated LDL cholesterol level E78.00 Moise Mcbride MD [address] [place] [address] Drive [address] [place] [id number] 09/13/2023 Moise Mcbride Migraine without aur a and without status migrainosus, not intractable G43.009 ASSESSMENTS Encounter Date Diagnosis Assessment Notes Treatment Notes Treatment Clinical Notes 03/29/2023 Annual physical exam (ICD-10 - Z00.00) labs reviewed and discussed with patient 03/29/2023 Migraine without aur a and without status migrainosus, not intractable (ICD-10 - G43.009) immetrex works great, will continue current regiment 03/26/2024 Blood tests for routine general physical examination (ICD-10 - Z00.00) 09/13/2023 Migraine without aur a and without status migrainosus, not intractable (ICD-10 - G43.009) 03/29/2023 Iron deficiency anemia due to chronic blood loss (ICD-10 - D50.0) restart her iron. not eating ice 03/26/2024 Acquired hypothyroidism (ICD-10 - E03.9) 03/29/2023 Chronic cough (ICD-1 0 - R05.3) if not better in 2 weeks to come back 03/26/2024 Iron deficiency anemia due to chronic blood loss (ICD-10 - D50.0) 03/29/2023 Acquired hypothyroidism (ICD-10 - E03.9) 03/26/2024 Elevated LDL cholesterol level (ICD-10 - E78.00) 03/29/2023 Depression screening (ICD-10 - Z13.31) negative screen PLAN OF TREATMENT Pending Test Test Name Order Date MAMMOGRAM DIGITAL BILATERAL SCREEN 02/13 MAMMOGRAM DIGITAL BILATERAL SCREEN 02/04 Complete Blood Count Auto Diff 5 Comprehensive [place]. Panel Fast 5 IRON PROFILE 03/26/2024 Lipid Panel 03/26/2024 TSH reflex Free T4 03/26/2024 UA ClnCatch+Micro w/rflx Cult 03/26/2024 Next Appt Details Provider Name:Moise morrissey, 04/02/2024 09:30:00 AM, [address] [place] [address], [place] [address], [place], [place], [phone], Insurance Providers Payer Name Payer Address Payer Phone Subscriber Number Group Number Insured Name Patient Relationship to Insured Coverage Start Date Coverage End Date [facility] [id number] [place], [place] [id number] [place] [address],CELESTINA DO Self - patient is the insured MEDICAL (GENERAL) HISTORY Medical History History ICD Code crohn's disease - diagnosed in 1998 not taking any meds at this time but usually takes asachol if needed. colonoscopy - 11/18/14
--- OUTSIDE RECORDS SUMMARY | 2024-03-26 12:43 | XMS_ITS | Data Portability ---
Author Organization [facility], [facility] Address [address] [facility] [address] [place] [address] Care Team Providers Care Dog Groomer Name Role Phone LILLIANA VALDOVINOS Primary Care Provider [phone] Assessment No assessment recorded. Plan of Treatment Reminders Order Date Submit Date Provider Last Modified By Organization Details Last Modified Time Details Appointments None recorded. Lab fecal occult blood, stool 2015 Thom Fontaine MD, [address] [place], [address], 6 17:38:30 mononucleos is, heterophile Ab, blood 2015 016 camille Fontaine MD, [address] [place], [address], 6 17:38:30 CBC w/ auto diff 2015 Thom Fontaine MD, [facility] [place], [address], 6 17:38:30 Referral None recorded. Procedures None recorded. Surgeries None recorded. Imaging x-ray, chest, 2 view 2015 Thom Fontaine MD, [address] [place], [address], 6 17:38:30 Medication Orders Zithromax Z-Nael 250 mg tablet 2015 Thom obrien [id number], [address], [place], [address], 6 17:38:30 promethazin e 6.25 mg-codeine 10 mg/5 mL syrup 2015 Thom obrien [id number], [address], [place], [address], 6 17:38:30 Patient TargetsNo targets recorded. Patient InstructionsNo instructions recorded. Reason for Referral None Reported. Results Created Date Observation Date Name Description Value Unit Range Abnormal Flag Note LastModifiedBy Organization Detail LastModifiedTime 05/07/2015 monon ucleo sis, heter ophil e Ab, blood Result negati ve Not Available Femi [place] [address] [place], [address], 05/07/2015 14:18:46 05/07/2015 fecal occul t blood , stool In Office Occult Blood negati ve Not Available Femi Hardy [address] [place], [address], 05/07/2015 12:10:48 05/07/2015 CBC w/ auto diff Unknown Analyte abnorm al abnormal Not Available Femi Hardy [address] [place], [address], 05/07/2015 11:34:46 05/07/19 16 05/07/2015 x-ray , chest , 2 view Result Not Available Femi Fontaine MD [address] [place], [address], 05/07/2015 11:34:46 05/10/19 16 05/10/2015 x-ray , chest , 2 view No observ ation record ed. camille Not Available 2015 16:54:42 Result Notes None recorded. Problems Name Problem SNOMED Code Status Onset Date Resolution Date Notes Provider Name and Address Organization Details Recorded Time Productive cough -green sputum 150397695 Active feliciano montenegro [place] [facility] 6 17:38:30 Bacterial infectious disease 42975273 Active feliciano montenegro [place] [facility] 6 17:38:30 Anemia 580985343 Active feliciano mnotenegro [facility] 17:38:30 Fatigue 33145112 Active feliciano montenegro [facility] 17:38:30 Problem Notes None recorded. Procedures Surgical History Date Name Laterality Status Provider Name and Address Organization Details Recorded Time 0 Caesarean Section completed Lilli teague [facility] 05/07/2015 11:23:50 Imaging Results Imaging Date Name Status [facility]Modified by [facility] Details LastModified Time 05/10/2015 x-ray, chest, 2 view completed camille Information not available 05/10/2015 16:54:42 Procedure Notes None recorded. Medical Equipment None Reported. Allergies No known drug allergies Medications Name Sig Start Date Stop Date Status Note LastModified by Organization Details LastModified Time Proctosol HC 2.5 % rectal cream with applicator apply to affected area twice a day active Not Available Not Available No t Available azithromycin 250 mg tablet TAKE 2 TABLETS BY MOUTH TODAY, THEN TAKE 1 TABLET DAILY FOR 4 DAYS active Not Available Not Available No t Available promethazine 6.25 mg-codeine 10 mg/5 mL syrup TAKE 5ML BY MOUTH EVERY 6 HOURS NEEDED active Not Available Not Available No t Available levothyroxine 75 mcg tablet take 1 tablet by mouth once daily active Not Available Not Available No t Available MoviPrep 100 gram-7.5 gram-2.691 gram oral powder packet DRINK A 8 OUNCE GLASS BY MOUTH DIRECTED active Not Available Not Available No t Available Asacol HD 800 mg tablet,delayed release take 3 tablets by mouth once daily active Not Available Not Available No t Available Vitals Date Recorded Body mass index (BMI) Respiratory rate Body weight Heart rate Body height Oxygen saturation Oxygen saturation in Arterial blood by Pulse oximetry Body temperature Systolic blood pressure Diastolic blood pressure Provider Name and Address Organization Details Last Updated DateTime 6 22.8 kg/m2 12 /min 53496.8 555 g 92 /min 172.72 cm 99 % 99 % 98.1 [degF] 114 mm[Hg] 60 mm[Hg] Lilli warner [facility] 6 11:25:19 Social History None recorded. Functional Status None recorded. Mental Status None recorded. Family History Relationship Description Onset Age of this Age Resolved Age Notes LastModified by Organization Details LastModified Time Father Heart disease 52 afereirabuckl ey Not available 05/07/2015 11:23:50 Mother Osteopenia afereirabuckl ey Not available 05/07/2015 11:23:50 Medical History Condition Response High Blood Pressure N Ear or Hearing Problems N Thyroid Problems Y Eye Disorders N Kidney Disease/Dialysis N Lung Disease (Emphysema/Asthma/Chronic B ronchitis N Stroke or Paralysis N Heart disease, heart attack, or other ca rdiovascular condition N Eczema, Hives or other skin conditions N Diabetes (Diet/Insulin/Pill Control) N Any illness or injury in the last 5 year s N Seizures/Epilepsy N Muscle, Joint, or Bone Problems/Arthriti s/Rheumatological N Serious Illness or Injuries N Hospital Admission in the past year N Cancer N Headaches/Brain Injuries or Disorders N Heart Surgery (Valve/Bypass/Angioplasty) N Allergies N Psychiatric Disorder/Depression/Anxiety/ Insomnia N other N Loss or Altered Consciousness N Gynecological N Abdominal/Digestive Y High Cholesterol N Liver Disease N Low Back Pain N Gynecological HistoryNo gynecological history recorded. Obstetrics History GPAL:G 0 P 0 0 0 0 Past Encounters Encounter ID Performer Location Encounter Start Date Encounter Closed Date Diagnosis/Indication Diagnosis SNOMED-CT Code Diagnosis ICD10 Code [id number] feliciano k [facility] [address] [place] [address],[address] [place] [id number] 05/07/2015 11:01:03 05/07/2015 12:04:03 Productive cough -green sputum 402201471 R09.3 Bacterial infectious disease 79028080 A48.8 Anemia 990398197 D64.9 Fatigue 86919085 R53.83 Health Concerns Section Related Observation LastModified by Organization Detai ls LastModified Time None Recorded Concern Status LastModified by Organization Details LastModified Time None Recorded Advance Directives Directive None Recorded Payers Encounter Date Sequence Insurance Name Policy Number Policy Soni Covered Member ID Soni Member ID Guarantor Name 05/07/2015 1 [place] [employer] ([facility]) [id number] Sommer Cortez [id number] Sommer Cortez Notes Date Note Type Note Provider Name and Address Organization Details Recorded Time 05/07/2015 text/html Upper Respirator y SymptomsReported bypatient.Location:[facility] Quality:productive cough;colored phlegm;congested;hacki ng cough;wheezy cough Severity:moderate Duration:cough for weeks worse since last evening Onset/Timing:gradual Context:no foreign travel; non-smoker;sick contact; child with strep and cold symptoms Modifying Factors:OTC medication; Day quil Associated Symptoms:no change in number of pillows needed to sleep at night; no sweats; no significant weight gain; no significant weight loss; no sore throat; no vomiting; no diarrhea; no rash; no nausea;yellow-green, thick sputum;shortness of breath;wheezing;fatigu e;morning cough youngest child is post heart transplant 11/04 feliciano montenegro [place] [facility] 05/12/2015 17:38:32 OBGyn Episode No OBEpisode recorded.
[2024-03-26 13:02] LABS: Free T4 (Free Thyroxine) 0.77 ng/dL (0.71-1.85)
== END 2024-03-26 11:33 | disposition home or self-care (01) ==
LOC: HO.LNP 11:32
PROVIDERS: Visit Provider Internal Medicine
DX: Z00.00 Encounter for general adult medical examination without abnormal findings (principal); E03.9 Hypothyroidism, unspecified; D50.0 Iron deficiency anemia secondary to blood loss (chronic); E78.00 Pure hypercholesterolemia, unspecified
CPT/HCPCS: 80053; 80061; 81001; 83540; 84439; 84443; 85025; 87086; 87147

== ENCOUNTER → 2024-04-28 10:30 | Outpatient (BNV) | payer OTHER, SELFPAY | PROVIDERS: Visit Provider Internal Medicine | DX: Z12.31 Encounter for screening mammogram for malignant neoplasm of breast (principal) | CPT/HCPCS: 77063; 77067 ==

== ENCOUNTER 2024-05-18 07:15 | Outpatient (REF) | payer OTHER, SELFPAY ==
[2024-05-18 10:29] LABS: MANUAL DIFF FLAG NO
[2024-05-18 10:48] LABS: Basophils Absolute Auto 0.2 X10*3/uL (0.0-0.2); Eosinophils Absolute Auto 0.4 X10*3/uL (0.0-0.4); Eosinophils Percent Auto 4.8 % (0-4); Hematocrit 33.6 % (37.0-47.0); Hemoglobin 9.5 g/dl (12.0-16.0); Imm Gran Abs Auto 0.04 X10*3/uL (0.00-0.03); Imm Gran Pct Auto 0.5 % (0.0-0.4); Lymphocytes Absolute Auto 1.6 X10*3/uL (1.2-4.9); Lymphocytes Percent Auto 18.9 % (20-40); Mean Corpuscular HGB Conc 28.3 g/dl (31.0-35.0); Mean Corpuscular Volume 74.3 fL (80.0-98.0); Mean Platelet Volume 11.4 fL (9.4-12.3); Monocytes Absolute Auto 0.8 X10*3/uL (0.1-1.2); Monocytes Percent Auto 9.1 % (2-11); Neutrophils Absolute Auto 5.5 x10*3/uL (2.0-8.3); Neutrophils Percent Auto 64.7 % (45-73); Platelet Count 462 X10*3/uL (160-400); Red Blood Count 4.52 X10*6/uL (4.20-5.50); Red Cell Distribution Width 19.8 % (11.0-16.0); White Blood Count 8.5 X10*3/uL (4.8-10.8)
[2024-05-18 11:15] LABS: Iron 279 mcg/dL (30-160); Percent Iron Saturation 70 % (15-50); Total Iron Binding Capacity 398 mcg/dL (228-428); Unsaturated Iron Binding 119 ug/dL
--- OUTSIDE RECORDS SUMMARY | 2024-05-18 11:46 | XMS_ITS | Encounter Summary ---
Author Organization [facility] Address [address] [place] [address] Care Team Providers Care Certified Legal Secretary Specialist Name Role Phone Moise Valdovinos Primary Care Provider [phone] Encounter Details Date Type Department Care Team (Late st Contact Info) Description 09/09/2017 Orders Only [facility] SE[address] PELLE[address] [facility] [address] [place] [address] Provider, [facility] Social History Tobacco Use Types Packs/Day Years Used Date Smoking Tobacco: Never Assessed Comments Unknown Sex and Gender Information Value Date Recorded Sex Assigned at Not on file Legal Sex Female 1:35 PM EDT Gender Identity Not on file Sexual Orientation Not on file documented as of this encounter Plan of Treatment Not on file documented as of this encounter Results * Due to [place] state law, this organization might not be sharing negative HIV tests. * US TRANSVAGINAL (FOR IVF USE ONLY)FC (09/09/2017 7:43 AM EDT) Narrative [facility] - 09/09/2017 7:44 AM EDT Study performed for the acquisition of images only. ??No professional Interpretation required. us Repsc Provider IMG US OBGYN ORDERABLES Final Re sult [facility] documented in this encounter Visit Diagnoses Diagnosis Infertility, female Female infertility of unspecified origin Infertility, female Female infertility of unspecified origin documented in this encounter Care Teams Certified Legal Secretary Specialist Relationship Specialty Start Date End Date Moise Valdovinos MOISE VALDOVINOS [address] [place] [address] [place] [phone] PCP - General Internal Medicine 05/17/17 documented as of this encounter
--- OUTSIDE RECORDS SUMMARY | 2024-05-18 11:46 | XMS_ITS | Encounter Summary ---
Author Organization [facility] Address [address] [place] [address] Care Team Providers Care Automation Application Engineer Name Role Phone Moise Valdovinos Primary Care Provider [phone] Encounter Details Date Type Department Care Team (Late st Contact Info) Description 08/06/2017 Orders Only [facility] CHIEF PRIVACY OFFICER [address] [facility] [address] [place] [address] Provider, [facility] Social History Tobacco Use Types Packs/Day Years [...] of this encounter Results * Due to [place] state law, this organization might not be sharing negative HIV tests. * US TRANSVAGINAL (FOR IVF USE ONLY)FC (08/26/2017 8:08 AM EDT) Narrative [facility] - 08/26/2017 8:08 AM EDT Study performed for the acquisition of images only. ??No professional Interpretation required. us Repsc Provider IMG US OBGYN ORDERABLES Final Re sult [facility] documented in this encounter Visit Diagnoses Diagnosis Female infertility Female infertility of unspecified origin Female infertility Female infertility of unspecified origin documented in this encounter Care Teams Automation Application Engineer Relationship Specialty Start Date End Date Moise Valdovinos MOISE VALDOVINOS [address] [place] [address] [place] [phone] PCP - General Internal Medicine 05/17/17 documented as of this encounter
--- OUTSIDE RECORDS SUMMARY | 2024-05-18 11:46 | XMS_ITS | Encounter Summary ---
Author Organization [facility] Address [address] [place] [address] Care Team Providers Care Press Tender Long Goods Name Role Phone Moise Valdovinos Yoav Primary Care Provider [phone] Encounter Details Date Type Department Care Team (Late st Contact Info) Description 05/27/2017 Orders Only [facility] INDUSTRIAL GAS SERVICER [address] [facility] [address] [place] [address] [place], [place] Social History Tobacco Use Types Packs/Day Years [...] of this encounter Results * Due to [place] state law, this organization might not be sharing negative HIV tests. * US TRANSVAGINAL (FOR IVF USE ONLY)FC (07/02/2017 7:56 AM EDT) Narrative [facility] - 07/02/2017 7:56 AM EDT Study performed for the acquisition of images only. ??No professional Interpretation required. us Repsc Provider IMG US OBGYN ORDERABLES Final Re sult [facility] * US TRANSVAGINAL (FOR IVF USE ONLY)FC (05/27/2017 7:41 AM EST) Narrative [facility] - 05/27/2017 7:41 AM EST Study performed for the acquisition of images only. ??No professional Interpretation required. us Repsc Provider IMG US OBGYN ORDERABLES Final Re sult [facility] documented in this encounter Visit Diagnoses Diagnosis Infertility, female Female infertility of unspecified origin Infertility, female Female infertility of unspecified origin Infertility, female Female infertility of unspecified origin documented in this encounter Care Teams Press Tender Long Goods Relationship Specialty Start Date End Date Moise Valdovinos MOISE VALDOVINOS [address] [place] [address] [place] [phone] PCP - General Internal Medicine 05/17/17 documented as of this encounter
--- OUTSIDE RECORDS SUMMARY | 2024-05-18 11:46 | XMS_ITS ---
Author Organization Moise Mcbride MD Address [address] [place], [place] [id number] Care Team Providers Care Filter Screen Cleaner Name Role Phone Moise Mcbride Primary Care Provider Results Component Value Reference Range Notes Complete Blood Count Auto Di ff (Not yet reviewed by provider) Interpretation: Performing Lab:[facility], [address] [place] [phone] Notes/Report: White Blood Count 8.5 4.8-10.8 X10*3/uL Red Blood Count 4.52 4.20-5.50 X10*6/uL Hemoglobin 9.5 12.0-16.0 g/dl Hematocrit 33.6 37.0-47.0 % Mean Corpuscular Volume 74.3 80.0-98.0 fL Mean Corpuscular Hemoglobin 21.0 27.0-33.0 pg Mean Corpuscular HGB Conc 28.3 31.0-35.0 g/dl Red Cell Distribution Width 19.8 11.0-16.0 % Platelet Count 462 160-400 X10*3/uL Mean Platelet Volume 11.4 9.4-12.3 fL Neutrophils Percent Auto 64.7 45-73 % Imm Gran Pct Auto 0.5 0.0-0.4 % Lymphocytes Percent Auto 18.9 20-40 % Monocytes Percent Auto 9.1 2-11 % Eosinophils Percent Auto 4.8 0-4 % Basophils Percent Auto 2.0 0-2 % NRBC Pct Auto 0.0 0.0-0.2 /100WBC Neutrophils Absolute Auto 5.5 2.0-8.3 x10*3/u L Imm Gran Abs Auto 0.04 0.00-0.03 X10*3/uL Lymphocytes Absolute Auto 1.6 1.2-4.9 X10*3/u L Monocytes Absolute Auto 0.8 0.1-1.2 X10*3/uL Eosinophils Absolute Auto 0.4 0.0-0.4 X10*3/u L Basophils Absolute Auto 0.2 0.0-0.2 X10*3/uL NRBC Abs Auto 0.000 0.0-0.012 X10*3/uL IRON PROFILE (Not yet review ed by provider) Interpretation: Performing Lab:[facility], [address] [place] [phone] Notes/Report: Iron 279 30-160 mcg/dL Total Iron Binding Capacity 398 228-428 mcg/d L Percent Iron Saturation 70 15-50 % Unsaturated Iron Binding 119 REASON FOR VISIT CBC, IRON PROFILE Encounters Encounter Location Date Provider Diagnosis Moise Mcbride MD [address] [place] [address] [place] [phone] 05/18/2024 Moise Mcbride Migraine without aura and without status migrainosus, not intractable G43.009 Assessments Encounter Date Diagnosis (ICD Code) Assessment Notes Treatment Notes Treatment Clinical Notes Section Notes 05/18/2024 Migraine without aura and without status migrainosus, not intractable (ICD-10 - G43.009) Plan Of Treatment Pending Test Test Name Order Date Complete Blood Count Auto Diff IRON PROFILE 05/18/2024 Next Appt Details Provider Name:Moise morrissey, 05/22/2024 09:15:00 AM, [address] [place] [address], [address], [phone], Provider Name:Moise morrissey, 04/01/2025 07:30:00 AM, [address] [place] [address], [address], [phone], Provider Name:Moise morrissey, 04/08/2025 09:30:00 AM, [address] [facility], [address], [place], [phone], Progress Notes * GENE FERNANDESOB: 8 (48 yo F)Acc No.[id number]:05/18/2024 Progress Note Patient:?CELESTINA FERNANDES Provider:?Moise Mcbride MD :1975???Age:48 Y???Sex:Female D ate:05/18/2024 Address:[address] [place] [address] , [facility], [id number] Subjective: * Chief Complaints: * ???1. CBC, IRON PROFILE. * Medical History:? Objective: * Vitals:? Assessment: * Assessment: 1.?Migraine without aura and without status migrainosus, not intractable - G43.009??? Plan: * Treatment: * * The named appointment provid er may or may not be the originator of this progress note, and it is not deemed complete until electronically signed by the appointment provider. Sign off status: Pending * Provider:?Moise Mcbride MD Date:?0 05/18/2024 Generated for Magda smith/Karen/Heriitting on:?05/18/2024 11:46 AM EST
--- OUTSIDE RECORDS SUMMARY | 2024-05-18 11:46 | XMS_ITS | Clinical Summary ---
Author Organization [facility] Address [address] [place] [address] Care Team Providers Care Chief Hydroelectric Station Operator Name Role Phone Reed Moise P Primary Care Provider [phone] Social History Tobacco Use Types Packs/Day Years Used Date Smoking Tobacco: Never Assessed Intimate Partner Violence Answer Date R ecorded Fear of Current or Ex-Partner Not on file Emotionally Abused Not on file 11/15/2022 Physically Abused Not on file 11/15/2022 Sexually Abused Not on file 11/15/2022 Feel Safe at Home Not on file 11/15/2022 Comments Unknown Sex and Gender Information Value Date Recorded Sex Assigned at Not on file Legal Sex Female 1:35 PM EDT Gender Identity Not on file Sexual Orientation Not on file Plan of Treatment Health Maintenance Due Date Last Done Comments Hepatitis C Screening 1975 Pap Smear 1993 DTaP/Tdap/Td (1 - Tdap) 09/29/1995 Hep B (1 of 3 - 19+ 3-dose series) 1996 Mammogram/Breast Imaging 2017 COVID-19 Vaccine (2023-2 5 season) 2023 Influenza (#1) 2023 Zoster (Shingrix) (1 of 2) 09/29/2027 HPV Vaccine Aged Out No longer eligi ble based on patient's age to complete this topic Hep A Aged Out No longer eligi ble based on patient's age to complete this topic Hib Aged Out No longer eligi ble based on patient's age to complete this topic Meningococcal ACWY Aged Out No longer eligible based on patient's age to complete this topic Pneumococcal Aged Out No longer eligi ble based on patient's age to complete this topic Insurance [facility] Care Teams Chief Hydroelectric Station Operator Relationship Specialty Start Date End Date Moise Valdovinos MOISE VALDOVINOS [address] [place] [address] [place] [phone] PCP - General Internal Medicine 05/17/17
--- OUTSIDE RECORDS SUMMARY | 2024-05-18 11:46 | XMS_ITS | Encounter Summary ---
Author Organization [facility] Address [address] [place] [address] Care Team Providers Care Ditch Repairer Name Role Phone Moise Valdovinos Primary Care Provider [phone] Encounter Details Date Type Department Care Team (Late st Contact Info) Description 07/09/2017 Orders Only [facility] [address] [place] [address] Provider, [facility] Social History Tobacco Use Types Packs/Day [...] of this encounter Results * Due to [place] state law, this organization might not be sharing negative HIV tests. * US TRANSVAGINAL (FOR IVF USE ONLY)FC (07/16/2017 7:55 AM EDT) Narrative [facility] - 07/16/2017 7:55 AM EDT Study performed for the acquisition of images only. ??No professional Interpretation required. us Repsc Provider IMG US OBGYN ORDERABLES Final Re sult [facility] documented in this encounter Visit Diagnoses Diagnosis Infertility, female Female infertility of unspecified origin Infertility, female Female infertility of unspecified origin documented in this encounter Care Teams Ditch Repairer Relationship Specialty Start Date End Date Moise Valdovinos MOISE VALDOVINOS [address] [place] [address] [place] [phone] PCP - General Internal Medicine 05/17/17 documented as of this encounter
--- OUTSIDE RECORDS SUMMARY | 2024-05-18 11:46 | XMS_ITS ---
Author Organization Moise Mcbride MD Address [address] [place], [place] [id number] Care Team Providers Care Supervisor Paper Coating Name Role Phone Moise Mcbride Primary Care Provider [phone] Allergies Allergen (clinical drug ingredient) Drug/Non Drug Allergy documented on EMR Reaction Allergy Type Onset Date Status tape from (uncoded) rash Allergy Active seasonal allergies (uncoded) cough/phlegm Allergy Active REASON FOR VISIT ANNUAL EXAM c/o persistent cough x 1 month, [facility] Medications Medication SIG (Take, Route, Frequency, Duration) Notes Start Date End Date Status Albuterol Sulfate HFA 108 (90 Base) MCG/ACT 1 puff as needed Inhalation every 4 hrs for 30 days 03/29/2023 Active Kurvelo 0.15-30 MG-MCG 1 tablet Orally O nce a day for 28 day(s) Active Levothyroxine Sodium 125 MCG 1 tablet Orally Once a day for 90 days Not-Taking Ocuflox 0.3 % as directed Ophthalm ic 2 drops rt eye 4 times a day for 7 days 07/17/2022 Not-Taking Imitrex 50 MG 1 tablet at least 2 hours between doses as needed Orally Twice a day as needed for 10 days 03/22/2022 Active Social History Tobacco Use: Social History Observation Description Date Details (start date - stop date) Never Smoker NA - NA Tobacco Use/Smoking Question Answer Notes Patient is [...] Never (0 point) Points 2 Interpretation Negative Problems Problem Type SNOMED Code ICD Code Onset Dates Problem Status W/U Status Risk Notes Problem [id number] Annual physical exam (Z00.00) Active confirmed Vital Signs Blood pressure systolic 122 mm Hg 04/02/19 25 Blood pressure diastolic 66 mm Hg 025 Height 67.5 in 04/02/2024 Weight 172 lbs 04/02/2024 BMI 26.54 kg/m2 04/02/2024 weight is up 6 pounds since 03-29-23 Encounters Encounter Location Date Provider Diagnosis Moise Mcbride MD [address] [place] [address] [place] [phone] 04/02/2024 Moise Mcbride Iron deficiency anemia due to chronic blood loss D50.0 ; Annual physical exam Z00.00 ; Crohns colitis, without complications K50.10 ; Migraine without aura and without status migrainosus, not intractable G43.009 ; Depression screening Z13.31 and Persistent cough R05.3 Assessments Encounter Date Diagnosis (ICD Code) Assessment Notes Treatment Notes Treatment Clinical Notes Section Notes 04/02/2024 Iron deficiency anemia due to chronic blood loss (ICD-10 - D50.0) to get back on iron and will repeat cbc in 6 weeks, pending future labs 04/02/2024 Annual physical exam (ICD-10 - Z00.00) labs reviewed and discussed with patient 04/02/2024 Crohns colitis, without complications (ICD-10 - K50.10) is going to get back to gastro 04/02/2024 Migraine without aura and without status migrainosus, not intractable (ICD-10 - G43.009) doing well with immetrex, will continue current regiment 04/02/2024 Depression screening (ICD-10 - Z13.31) negative screen 04/02/2024 Persistent cough (ICD-10 - R05.3) started with respiratory infection that went through the house. is almost better but still with a persistant intermittant cough. will observe if not better in few weeks to return Plan Of Treatment Treatment Notes Assessment Notes Iron deficiency anemia due t o chronic blood loss to get back on iron and will repeat cbc in 6 weeks, pending future labs Annual physical exam labs reviewed and d iscussed with patient Crohns colitis, without complications is going to get back to gastro Migraine without aura and wi thout status migrainosus, not intractable doing well with immetrex, will continue current regiment Depression screening negative screen Persistent cough started with respira tory infection that went through the house. is almost better but still with a persistant intermittant cough. will observe if not better in few weeks to return Pending Test Test Name Order Date Complete Blood Count Auto Diff IRON PROFILE 04/02/2024 Next Appt Details Follow Up: 6 Weeks, Reason: Provider Name:Moise morrissey, 05/22/2024 09:15:00 AM, [address] [place] [address], [place] [address], [place], [place], [phone], Provider Name:Moise morrissey, 04/01/2025 07:30:00 AM, [address] [place] [address], Suite [facility], [place], [place], [phone], Provider Name:Moise morrissey, 04/08/2025 09:30:00 AM, [address] [place] [address], [place] [address], [place], [place], [phone], Progress Notes * GENE FERNANDESOB: 8 (48 yo F)Acc No.[id number]:04/02/2024 Progress Notes Patient:?CELESTINA FERNANDES Provider:?Moise Mcbride MD :1975???Age:48 Y???Sex:Female D ate:04/02/2024 Address: [address], [place], [id number] Subjective: * Chief Complaints: * ???ANNUAL EXAM c/o persisten t cough x 1 [facility] * HPI: ???Depression Screening:?PHQ-9?Little interest or pleasure in doing things?Not at all,?Feeling down, depressed, or hopeless?Not at all,?Trouble falling or staying asleep, or sleeping too much?Not at all,?Feeling tired or having little energy?Not at all,?Poor appetite or overeating?Not at all,?Feeling bad about yourself or that you are a failure, or have let yourself or your family down?Not at all,?Trouble concentrating on things, such as reading the newspaper or watching television?Not at all,?Moving or speaking so slowly that other people could have noticed; or the opposite, being so fidgety or restless that you have been moving around a lot more than usual?Not at all,?Thoughts that you would be better off or of hurting yourself in some way?Not at all,?Total Score?0.?Interpretation and Intervention?Depression Screening Findings?Negative,?Follow-Up for Depression?: review of PHQ-9 found negative result, no follow-up needed.?Communication Needs:?Communication Needs?Does the patient have a hearing impairment?No,?Does the patient have a vision impairment??Yes,?If yes, what is the vision impairment??Glasses,?Does the patient have a cognition impairment??No.?SDOH Questions:?SDOH Questions?In the past year have you been worried about losing housing??No,?In the past year have you or any family members you live with been unable to get any of the following when it was really needed? Check all that apply:?None.?Symptom(s):? patient is a 48 yo female here for annual visit with review of recent labs and follow up of chronic issues. Also complaining of persistant cough for one month.has been doing well/. has a cough since beginning of february no wheezing. no shortness of breath. * ROS:?General/Constitutional:?Patient denies?fatigue , headache.?Change in appetite?denies.?Chills?denies.?Fever?denies.?Ophthalmologic:?Blurred vision?denies.?Discharge?denies.?Pain?denies.?ENT:?Patient denies?decreased sense of smell , any loss of taste , sore throat.?Decreased hearing?denies.?Sore throat?denies.?Swollen glands?denies.?Endocrine:?Cold intolerance?denies.?Excessive thirst?denies.?Heat intolerance?denies.?Weight loss?denies.?Respiratory:?Cough?denies.?Shortness of breath at rest?denies.?Shortness of breath with exertion?denies.?Wheezing?denies.?Cardiovascular:?Chest pain at rest?denies.?Chest pain with exertion?denies.?Irregular heartbeat?denies.?Shortness of breath?denies.?Gastrointestinal:?Abdominal pain?denies.?Change in bowel habits?denies.?Diarrhea?denies.?Nausea?denies.?Rectal bleeding?admits for years.?.?Vomiting?denies .?Genitourinary:?Blood in urine?denies.?Difficulty urinating?denies.?Frequent urination?denies.?Urinary incontinence?Denies.?Musculoskeletal:?Patient denies?muscle aches.?Painful joints?denies.?Weakness?denies.?Peripheral Vascular:?Patient denies?red and blue toes.?Skin:?Dry skin?denies.?Itching?denies.?Denies?Mole(s),? changes in moles, new moles or any lesions of concern.?Denies?Photosensitivity.?Rash?denies.?Neurologic:?Dizziness?denies.?Fainting?denies.?Headache?denies.? * Medical History:? * Surgical History:? * Hospitalization/Major Diagno stic Procedure:? * Family History:?Father: dece ased 52 yrs.?Mother: alive 76 yrs.?Son(s): alive, transposistion of greater arteries needing surgery.?1 brother(s) , 2 sister(s) . 2 son(s) , 1 daughter(s) . .? Father- Cardiac, Denies mental health/substance abuse family history, Denies mental health/substance abuse family history, No pertinent family medical history, No pertinent family medical history. * Social History:?Tobacco Use:?Tobacco Use/Smoking?Patient is a?nonsmoker,?Additional Findings: Tobacco Non-User?Current non-smoker, currently using no form of tobacco.?Drugs/Alcohol:?Alcohol Screen?Did you have a drink containing alcohol in the past year??Yes,?How often did you have a drink containing alcohol in the past year??2 to 4 times a month (2 points),?How many drinks did you have on a typical day when you were drinking in the past year??1 or 2 drinks (0 point),?How often did you have 6 or more drinks on one occasion in the past year??Never (0 point),?Points?2,?Interpretation?Negative.?Miscellaneous:?Caffeine: yes, frequency:, 1-2 cups per day. Children: yes. Community involvements: yes. Exercise: yes, walks 35 minutes a day. Home smoke detector use: yes. Housing: owning. Living with: family. Marital status: . Occupation: works part-time. Pets: cats: dogs:1 dog. no Travel outside of the [place]. * Medications:?TakingKurvelo 0 .15-30 MG-MCG Tablet 1 tablet Orally Once a dayAlbuterol Sulfate HFA 108 (90 Base) MCG/ACT Aerosol Solution 1 puff as needed Inhalation every 4 hrsImitrex 50 MG Tablet 1 tablet at least 2 hours between doses as needed Orally Twice a day as neededTaking Kurvelo 0.15-30 MG-MCG Tablet 1 tablet Orally Once a dayTaking Albuterol Sulfate HFA 108 (90 Base) MCG/ACT Aerosol Solution 1 puff as needed Inhalation every 4 hrsTaking Imitrex 50 MG Tablet 1 tablet at least 2 hours between doses as needed Orally Twice a day as neededNot-Taking/PRNOcuflox 0.3 % Solution as directed Ophthalmic 2 drops rt eye 4 times a dayLevothyroxine Sodium 125 MCG Tablet 1 tablet Orally Once a dayMedication List reviewed and reconciled with the patientNot-Taking/PRN Ocuflox 0.3 % Solution as directed Ophthalmic 2 drops rt eye 4 times a dayNot-Taking/PRN Levothyroxine Sodium 125 MCG Tablet 1 tablet Orally Once a dayMedication List reviewed and reconciled with the patient * Allergies:?seasonal allergie s: cough/phlegmtape from : jared[Allergies Verified] Objective: * Vitals:?Ht: 67.5, Wt:172, BM I:26.54, BP:122/66 weight is up 6 pounds since 03-29-23. * ???Past Orders: ???Lab:IRON PROFILE (Order D ate - 03/26/2024) (Collection Date - 03/26/2024) ? Value Reference Range ?Iron 15 L 30-160 - mcg/dL ?Total Iron Binding Capacity 364 228-428 - mcg/dL ?Percent Iron Saturation 4 L 15-50 - % ?Unsaturated Iron Binding 349 - ug/dL ???Lab:Lipid Panel (Order Da te - 03/26/2024) (Collection Date - 03/26/2024) ? Value Reference Range ?Triglycerides 181 H <150 - mg/dL ?Cholesterol 197 <200 - m g/dL ?LDL Cholesterol Calculated 117 H <100 - mg/dL ?HDL Cholesterol 44 >40 - mg/dL ???Lab:TSH reflex Free T4 (O rder Date - 03/26/2024) (Collection Date - 03/26/2024) ? Value Reference Range ?TSH reflex Free T4 5.01 H 0 .32-4.0 - uIU/mL ???Lab:UA ClnCatch+Micro w/r flx Cult (Order Date - 03/26/2024) (Collection Date - 03/26/2024) ? Value Reference Range ?Color Urine Yellow - ?Appearance Urine Turbid - ?PH 5.5 5.0-9.0 - ?Glucose Urine UA Negative Neg ative - mg/dL ?Urine Blood Negative Negative - ?Specific [place] - Urine >= 1.030 H 1.005-1.025 - ?Urine Protein Trace Neg-Tr bertin - mg/dL ?Urine Ketones Negative Negati ve - mg/dL ?Nitrite Urine Negative Negati ve - ?Leukocyte Esterase Urine Small (1+) A Negative - ?RBC Urine 0-2 0-2 - /HPF ?WBC Urine 6-10 0-5 - /HPF ?Squamous Epithelial Cell Urine >20 0-2 - /HPF ?Bacteria Urine 2+ None Seen - ?Hyaline Casts Urine 0-2 0-2 - /LPF ???Lab:Free T4 (Free Thyroxi ne) (Order Date - 03/26/2024) (Collection Date - 03/26/2024) ? Value Reference Range ?Free T4 (Free Thyroxine) 0.77 0.71-1.85 - ng/dL ???Lab:Comprehensive [place]. P diana Fast (Order Date - 03/26/2024) (Collection Date - 03/26/2024) ? Value Reference Range ?Sodium 138 135-145 - mmo l/L ?Bilirubin Total 0.3 0.0- 1.0 - mg/dL ?Aspartate Amino Transferase 50 H 5-31 - U/L ?Alanine Aminotransferase 57 H 0-31 - U/L ?Total Protein 7.3 6.5-8. 0 - g/dL ?Albumin Level 3.9 3.5-5. 0 - g/dL ?Alkaline Phosphatase 80 39-117 - U/L ?Potassium 4.1 3.3-5.1 - mmol/L ?Chloride 108 96-108 - mm ol/L ?Carbon Dioxide 22 22-29 - mmol/L ?Anion Gap 12 12-20 - ?Blood Urea Nitrogen 10 9-16 - mg/dL ?Creatinine 0.77 0.5-1.4 - mg/dL ?Estimated Glomerular Filt Rate > 60 - ?Glucose Fasting 101 H 60-9 9 - mg/dL ?Calcium 8.3 L 8.4-10.2 - m g/dL ???Lab:Urine Culture (Order Date - 03/26/2024) (Collection Date - 03/26/2024) ? Value Reference Range ?Urine Culture Susceptibility not routinely performed on this isolate. - ?O:STRAGA Strep agalactiae (Grp B) - * Examination: ???General Examination: ?GENERAL APPEARANCE:?well developed, well nourished, in no acute distress.?HEAD:?normocephalic, atraumatic.?EYES:?pupils equal, round, reactive to light and accommodation, sclera non-icteric.?EARS:?normal.?ORAL CAVITY:?mucosa moist.?THROAT:?clear.?NECK/THYROID:?neck supple, full range of motion, no cervical lymphadenopathy, no bruits.?SKIN:?warm and dry, no suspicious lesions.?HEART:?regular rate and rhythm, S1, S2 normal, no murmurs.?LUNGS:?clear to auscultation bilaterally.?BREASTS:?done by corporate scheduler.?ABDOMEN:?soft, nontender, nondistended, bowel sounds present, normal, no organomegaly , no masses palpable.?RECTAL EXAM:?done by corporate scheduler.?FEMALE GENITOURINARY:?done by corporate scheduler.?EXTREMITIES:?no clubbing, cyanosis, or edema.?NEUROLOGIC:?nonfocal, motor strength normal upper and lower extremities, sensory exam intact.? Assessment: * Assessment: 1.?Annual physical exam - Z0 0.00 (Primary)?2.?Iron deficiency anemia due to chronic blood loss - D50.0?3.?Crohns colitis, without complications - K50.10?4.?Migraine without aura and without status migrainosus, not intractable - G43.009?5.?Depression screening - Z13.31?6.?Persistent cough - R05.3? Plan: * Treatment: 2.?Iron deficiency anemia du e to chronic blood loss? Notes: to get back on iron and will repeat cbc in 6 weeks, pending future labs?? 3.?Crohns colitis, without c omplications? Notes: is going to get back to gastro?? 4.?Migraine without aura and without status migrainosus, not intractable?LAB: Complete Blood Count Auto Diff (Ordered for 05/14/2024) ?LAB: IRON PROFILE (Ordered for 05/14/2024) Notes: doing well with immetrex, will continue current regiment?? 5.?Depression screening? Notes: negative screen?? 6.?Persistent cough? Notes: started with respiratory infection that went through the house. is almost better but still with a persistant intermittant cough. will observe if not better in few weeks to return?? * Procedure Codes:? * Follow Up:?6 Weeks * * Sign off status: Completed true * Provider:?Moise Mcbride MD Date:?0 04/02/2024 Generated for Diaashlie smith/Karen/eTransmitting on:?05/18/2024 11:45 AM EST History and Physical Notes * HPI (History of Present Illness) Category Sub-Category Detail Notes Category Not es Symptom(s) patient is a 48 yo female here for annual visit with review of recent labs and follow up of chronic issues. Also complaining of persistant cough for one month.has been doing well/. has a cough since beginning of february no wheezing. no shortness of breath Depression Screening PHQ-9 Little inte rest or [...] really needed? Check all that apply:: None Communication Needs Communication Needs Does the patient have a hearing impairment: No Does the patient have a vision impairmen t?: Yes ?If yes, what is the vision impairment?: Glasses Does the patient have a cognition impair ment?: No Examination Category Sub-Category Detail Notes Category Not es General Examination GENERAL APPEARANCE: well dev eloped, [...] cyanosi s, or edema BREASTS: done by corporate scheduler RECTAL EXAM: done by corporate scheduler FEMALE GENITOURINARY: done by corporate scheduler ORAL CAVITY: mucosa moist
--- OUTSIDE RECORDS SUMMARY | 2024-05-18 11:46 | XMS_ITS | Data Portability ---
Author Organization [facility], [facility] Address [address] [facility] [address] [place] [address] Care Team Providers Care Induction Coordination Power Engineer Name Role Phone LILLIANA VALDOVINOS Primary Care Provider Assessment No assessment recorded. Plan of Treatment Reminders Order Date Submit Date Provider Last Modified By Organization Details Last Modified Time Details Appointments None recorded. Lab fecal occult blood, stool 2015 Thom Fontaine MD, [address] [place], [address], 6 17:38:30 mononucleos is, heterophile Ab, blood 2015 016 camille Fontaine MD, [address] [place], [address], 6 17:38:30 CBC w/ auto diff 2015 Thom Fontaine MD, [facility] [place], [address], 6 17:38:30 Referral None recorded. Procedures None recorded. Surgeries None recorded. Imaging x-ray, chest, 2 view 2015 Thom Fontaine MD, [address] [place], [address], 6 17:38:30 Medication Orders Zithromax Z-Nael 250 mg tablet 2015 Thom obrien [id number], [address], [place], [address], 6 17:38:30 promethazin e 6.25 mg-codeine 10 mg/5 mL syrup 2015 016 camille [id number], [address], [place], [address], 6 17:38:30 Patient TargetsNo targets recorded. Patient InstructionsNo instructions recorded. Reason for Referral None Reported. Results Created Date Observation Date Name Description Value Unit Range Abnormal Flag Note LastModifiedBy Organization Detail LastModifiedTime 05/07/19 16 05/07/2015 monon ucleo sis, heter ophil e Ab, blood Result negati ve Not Available Femi Lee[address] [place], [address], 05/07/2015 14:18:46 05/07/19 16 05/07/2015 fecal occul t blood , stool In Office Occult Blood negati [place], [address], 05/07/2015 12:10:48 05/07/19 16 05/07/2015 CBC w/ auto diff Unknown Analyte abnorm al abnormal Not Available eFmi Lee9 [place], [address], 05/07/2015 11:34:46 05/07/19 16 05/07/2015 x-ray , chest , 2 view Result [place], [address], 05/07/2015 11:34:46 05/10/19 16 05/10/2015 x-ray , chest , 2 view No observ ation record ed. camille Not Available 2015 16:54:42 Result Notes None recorded. Problems Name Problem SNOMED Code Status Onset Date Resolution Date Notes Provider Name and Address Organization Details Recorded Time Productive cough -green sputum 712857497 Active feliciano montenegro [place] - [facility] 6 17:38:30 Bacterial infectious disease 57937872 Active feliciano montenegro [facility] 6 17:38:30 Anemia 733645782 Active feliciano montenegro [facility] 6 17:38:30 Fatigue 14264871 Active feliciano montenegro [facility] 6 17:38:30 Problem Notes None recorded. Procedures Surgical History Date Name Laterality Status Provider Name and Address Organization Details Recorded Time 0 Caesarean Section completed Lilli teague [facility] 05/07/2015 11:23:50 Imaging Results Imaging Date Name Status LastModified by Toby alves Details LastModified Time 05/10/2015 x-ray, chest, 2 [...] Updated DateTime 6 22.8 kg/m2 12 /min 95287.8 555 g 92 /min 172.72 cm 99 % 99 % 98.1 [degF] 114 mm[Hg] 60 mm[Hg] Lilli Quijano [facility] MEDICAL 11:25:19 Social History None recorded. Functional Status [...] Diagnosis/Indication Diagnosis SNOMED-CT Code Diagnosis ICD10 Code Diagnosis Note [id number] feliciano phan [facility] [address] [facility],[address] [place] [address] 05/07/2015 11:01:03 05/07/2015 12:04:03 Productive cough -green sputum 669141636 R09.3 Supportive measures discussed. Advised cough medicine can be sedating and should use caution regarding operating heavy machinery or driving. Bacterial infectious disease 85555152 A48.8 Discussed diagnosis and treatment options with patient/ca regiver. Rest, plenty of fluids and Tylenol/Mo kortney alternatin g every 4 hours as needed for discomfort /fever as well as a probiotic to aid prevention of diarrhea. Discussed eating a yogurt daily or taking acidophilu s to prevent developmen t of a yeast infection if they are prone to them with antibiotic treatment. Discussed side effects and possible adverse reactions of medication s. Advised that antibiotic can make them more sensitive to the sun and make it easier to get sunburns. RTC 48-72 hours if no improvemen ts or worsening symptoms. The patient/ca regiver is aware of reasons to return to care sooner or present directly to the emergency department . Answered all of patients/c aregivers questions and patient/ca regiver is in agreement with above assessment and plan. If on control, advised to use another form of contracept ion such as condoms until they start a new pack/new injection/ new patch as antibiotic s will make their current form less effective and they run a higher risk of becoming . Anemia 133278252 D64.9 not at critical levels; no reason to suspect GI bleed at this time; patient aware of red flags and will f/u with her PCP next week. Fatigue 78843410 R53.83 Health Concerns Section Related Observation LastModified by Organization Detai ls LastModified Time None Recorded Concern Status LastModified by Organization Details LastModified Time None Recorded Advance Directives Directive None Recorded Payers Encounter Date Sequence Insurance Name Policy Number Policy Soni Covered Member ID Soni Member ID Guarantor Name 05/07/2015 1 REPP ([id number]) [id number] Sommer Cortez [id number] Sommer Cortez Notes Date Note Type Note Provider Name and Address Organization Details Recorded Time 05/07/2015 text/html Upper Respirator y SymptomsReported bypatient.Location:[facility] Quality:productive cough;colored phlegm;congested;hacki ng cough;wheezy cough Severity:moderate [...] heart transplant 11/04 feliciano montenegro [place] - [facility] 05/12/2015 17:38:32 OBGyn Episode No OBEpisode recorded.
--- OUTSIDE RECORDS SUMMARY | 2024-05-18 11:46 | XMS_ITS | Encounter Summary ---
Author Organization [facility] Address [address] [place] [address] Care Team Providers Care Explosive Ordnance Manager Name Role Phone Moise Valdovinos Yoav Primary Care Provider [phone] Encounter Details Date Type Department Care Team (Late st Contact Info) Description 05/13/2017 Orders Only [facility] SENIOR MEDIA DIRECTOR [address] [facility] [address] [place] [address] Provider, [facility] Social History Tobacco Use Types Packs/Day [...] of this encounter Results * Due to [place] state law, this organization might not be sharing negative HIV tests. * US TRANSVAGINAL (FOR IVF USE ONLY)FC (05/23/2017 7:48 AM EST) Narrative [facility] - 05/23/2017 7:48 AM EST Study performed for the acquisition of images only. ??No professional Interpretation required. us Repsc Provider IMG US OBGYN ORDERABLES Final Re sult [facility] * US TRANSVAGINAL (FOR IVF USE ONLY)FC (05/21/2017 8:01 AM EST) Narrative [facility] - 05/21/2017 8:01 AM EST Study performed for the acquisition of images only. ??No professional Interpretation required. us Repsc Provider IMG US OBGYN ORDERABLES Final Re sult Performing Organization Address [facility] de Phone Number [facility] * US TRANSVAGINAL (FOR IVF USE ONLY)FC (05/17/2017 7:27 AM EST) [facility] RADIOLOGY SYSTEM - 05/17/2017 7:27 AM EST Study performed for the acquisition of images only. ??No professional Interpretation required. us Repnv Provider [facility] O[facility] ORDER[facility] Final Re sult Performing Organization Address [facility] Phone Number [facility] documented in this encounter Visit Diagnoses Diagnosis Female infertility Female infertility of unspecified origin Female infertility Female infertility of unspecified origin Female infertility Female infertility of unspecified origin Female infertility Female infertility of unspecified origin documented in this encounter Care Teams Explosive Ordnance Manager Relationship Specialty Start Date End Date Moise Valdovinos MOISE VALDOVINOS [address] [place] [address] DR RODRIGUEZ, JAGJIT [phone] PCP - General Internal Medicine 05/17/17 documented as of this encounter
--- OUTSIDE RECORDS SUMMARY | 2024-05-18 11:46 | XMS_ITS | Encounter Summary ---
Author Organization [facility] Address [address] [place] [address] Care Team Providers Care Nursery School Teacher Name Role Phone Moise Valdovinos Primary Care Provider [phone] Encounter Details Date Type Department Care Team ([facility] st Contact Info) Description 11/07/2017 Orders Only [facility] ENROLLMENT PROCESSOR [address] [facility] [address] [place] [address] Provider, [facility] Social History Tobacco Use Types Packs/Day [...] of this encounter Results * Due to [place] state law, this organization might not be sharing negative HIV tests. * US TRANSVAGINAL (FOR IVF USE ONLY)FC (11/07/2017 7:46 AM EDT) Narrative [facility] - 11/07/2017 7:46 AM EDT Study performed for the acquisition of images only. ??No professional Interpretation required. us Reput Provider IMG US OBGYN ORDERABLES Final Re sult [facility] documented in this encounter Visit Diagnoses Diagnosis Infertility, female Female infertility of unspecified origin Infertility, female Female infertility of unspecified origin documented in this encounter Care Teams Nursery School Teacher Relationship Specialty Start Date End Date Moise Valdovinos MOISE VALDOVINOS [address] [place] [address] [place] [phone] PCP - General Internal Medicine 05/17/17 documented as of this encounter
--- OUTSIDE RECORDS SUMMARY | 2024-05-18 11:46 | XMS_ITS | Encounter Summary ---
Author Organization [facility] Address [address] [place] [address] Care Team Providers Care Lime Kiln Worker Helper Name Role Phone Moise Valdovinos Primary Care Provider Encounter Details Date Type Department Care Team ([facility] st Contact Info) Description 11/21/2017 Orders Only [facility] RENTAL BOATS CARETAKER [address] [facility] [address] [place] [address] Provider, [facility] Social History Tobacco Use Types Packs/Day [...] of this encounter Results * Due to [place] state law, this organization might not be sharing negative HIV tests. * US TRANSVAGINAL (FOR IVF USE ONLY)FC (11/21/2017 8:31 AM EDT) Narrative [facility] - 11/21/2017 8:32 AM EDT Study performed for the acquisition of images only. ??No professional Interpretation required. us Repnv Provider IMG US OBGYN ORDERABLES Final Re sult [facility] documented in this encounter Visit Diagnoses Diagnosis Infertility, female Female infertility of unspecified origin Infertility, female Female infertility of unspecified origin documented in this encounter Care Teams Lime Kiln Worker Helper Relationship Specialty Start Date End Date Moise Valdovinos MOISE VALDOVINOS [address] [place] [address] [place] [address] PCP - General Internal Medicine 05/17/17 documented as of this encounter
--- OUTSIDE RECORDS SUMMARY | 2024-05-18 11:46 | XMS_ITS ---
Author Organization Moise Mcbride MD Address [address] [place], [place] [address] Care Team Providers Care Physician/Ophthalmologist Name Role Phone Moise Mcbride Primary Care Provider Results Component Value Reference Range Notes Complete Blood Count Auto Di ff Reviewed date:04/02/2024 10:48:30 AM Interpretation:CBACK 04/02 Performing Lab:[facility], [address] [place] [phone] Notes/Report: White Blood Count 8.7 4.8-10.8 X10*3/uL [...] NRBC Abs Auto 0.000 0.0-0.012 X10*3/uL Comprehensive [place]. Panel Fa st Reviewed date:03/26/2024 01:55:41 PM Interpretation: Performing Lab:[address] [address] Notes/Report: Sodium 138 135-145 mmol/L Potassium 4.1 [...] Alkaline Phosphatase 80 39-117 U/L IRON PROFILE Reviewed date:03/26/2024 01:41:31 PM Interpretation: Performing Lab:[address] [address] Notes/Report: Iron 15 30-160 mcg/dL Total Iron Binding Capacity 364 228-428 mcg/d L Percent Iron Saturation 4 15-50 % Unsaturated Iron Binding 349 Lipid Panel Reviewed date:03/26/2024 01:51:55 PM Interpretation: Performing Lab:[facility], [address] [place] [phone] Notes/Report: Triglycerides 181 <150 mg/dL Desirable Triglyceride: [...] with liver disease. TSH reflex Free T4 Reviewed date:03/26/2024 01:43:08 PM Interpretation: Performing Lab:[facility], [address] [place] [phone] Notes/Report: TSH reflex Free T4 5.01 0.32-4.0 uIU/mL UA ClnCatch+Micro w/rflx Cul t Reviewed date:03/26/2024 02:03:01 PM Interpretation: Performing Lab:[facility], [address] [place] [phone] Notes/Report: Urine, Clean Catch Color Urine Yellow Appearance Urine Turbid PH 5.5 5.0-9.0 Glucose Urine UA Negative Negative mg/dL Urine Blood Negative Negative Specific Surveyor - Urine >= 1.030 1.005-1.025 Urine Protein [...] Location Date Provider Diagnosis Moise Mcbride MD [address] [place] [phone] 03/26/2024 Moise Mcbride Blood tests for routine general physical examination Z00.00 ; Acquired hypothyroidism E03.9 ; Iron deficiency anemia due to chronic blood loss D50.0 and Elevated LDL cholesterol level E78.00 Assessments Encounter Date Diagnosis (ICD Code) Assessment Notes Treatment Notes Treatment Clinical Notes Section Notes 03/26/2024 Blood tests for routine general physical examination (ICD-10 - Z00.00) 03/26/2024 Acquired hypothyroidism (ICD-10 - E03.9) 03/26/2024 Iron deficiency anemia due to chronic blood loss (ICD-10 - D50.0) 03/26/2024 Elevated LDL cholesterol level (ICD-10 - E78.00) Plan Of Treatment Next Appt Details Provider Name:Moise morrissey, 05/22/2024 09:15:00 AM, [address] [place] [address], [place] [address], [place], [place], [phone], Provider Name:Moise morrissey, 04/01/2025 07:30:00 AM, [address] [place] [address], [place] [address], [place], [phone], Provider Name:Moise morrissey, 04/08/2025 09:30:00 AM, [address] [place] [address], [place] [address], [place], [place], [phone], Progress Notes * GENE FERNANDESOB: 8 (48 yo F)Acc No.[id number]:03/26/2024 Progress Note Patient:?CELESTINA FERNANDES Provider:?Moise Mcbride MD :1975???Age:48 Y???Sex:Female D ate:03/26/2024 [facility] Subjective: * Chief Complaints: * ???1. FASTING LABS. * Medical History:? Objective: * Vitals:? Assessment: * Assessment: 1.?Blood tests for routine g eneral physical examination - Z00.00 (Primary)???2.?Acquired hypothyroidism - E03.9???3.?Iron deficiency anemia due to chronic blood loss - D50.0???4.?Elevated LDL cholesterol level - E78.00??? Plan: * Treatment: ?LAB: Comprehensive [place]. Panel Fast (Collection Date & Time - 03/26/2024 08:00 AM) ?LAB: IRON PROFILE (Collection Date & Time - 03/26/2024 08:00 AM) ?LAB: Lipid Panel (Collection Date & Time - 03/26/2024 08:00 AM) ?LAB: TSH reflex Free T4 (Collection Date & Time - 03/26/2024 08:00 AM) ?LAB: UA ClnCatch+Micro w/rflx Cult (Collection Date & Time - 03/26/2024 08:00 AM)2.?Acquired hypothyroidism?LAB: Complete Blood Count Auto Diff (Collection Date & Time - 03/26/2024 08:00 AM)* Maia Villarreal 025 10:48:14 AM EST > CELESTINA CAME IN FOR PHYSICAL ?LAB: Comprehensive [place]. Panel Fast (Collection Date & Time - 03/26/2024 08:00 AM) ?LAB: IRON PROFILE (Collection Date & Time - 03/26/2024 08:00 AM) ?LAB: Lipid Panel (Collection Date & Time - 03/26/2024 08:00 AM) ?LAB: TSH reflex Free T4 (Collection Date & Time - 03/26/2024 08:00 AM) ?LAB: UA ClnCatch+Micro w/rflx Cult (Collection Date & Time - 03/26/2024 08:00 AM)3.?Iron deficiency anemia due to chronic blood loss?LAB: Complete Blood Count Auto Diff (Collection Date & Time - 03/26/2024 08:00 AM)* Maia Villarreal 025 10:48:14 AM EST > CELESTINA CAME IN FOR PHYSICAL ?LAB: Comprehensive [place]. Panel Fast (Collection Date & Time - 03/26/2024 08:00 AM) ?LAB: IRON PROFILE (Collection Date & Time - 03/26/2024 08:00 AM) ?LAB: Lipid Panel (Collection Date & Time - 03/26/2024 08:00 AM) ?LAB: TSH reflex Free T4 (Collection Date & Time - 03/26/2024 08:00 AM) ?LAB: UA ClnCatch+Micro w/rflx Cult (Collection Date & Time - 03/26/2024 08:00 AM)4.?Elevated LDL cholesterol level?LAB: Complete Blood Count Auto Diff (Collection Date & Time - 03/26/2024 08:00 AM)* JarvisMikeMaia Connolly 025 10:48:14 AM EST > CELESTINA CAME IN FOR PHYSICAL ?LAB: Comprehensive [place]. Panel Fast (Collection Date & Time - 03/26/2024 08:00 AM) ?LAB: IRON PROFILE (Collection Date & Time - 03/26/2024 08:00 AM) ?LAB: Lipid Panel (Collection Date & Time - 03/26/2024 08:00 AM) ?LAB: TSH reflex Free T4 (Collection Date & Time - 03/26/2024 08:00 AM) ?LAB: UA ClnCatch+Micro w/rflx Cult (Collection Date & Time - 03/26/2024 08:00 AM) * Procedure Codes:?39471 VENIP UNCT, ROUTINE* * * The named appointment provid er may or may not be the originator of this progress note, and it is not deemed complete until electronically signed by the appointment provider. Sign off status: Pending * Provider:?Moise Mcbride MD Date:?0 03/26/2024 Generated for Magda smith/Karen/eTransmitting on:?05/18/2024 11:46 AM EST
== END 2024-05-18 07:16 | disposition home or self-care (01) ==
LOC: HO.LNP 07:15
PROVIDERS: Visit Provider Internal Medicine
DX: G43.009 Migraine without aura, not intractable, without status migrainosus (principal)
CPT/HCPCS: 83540; 85025

== ENCOUNTER 2024-06-19 09:35 | Outpatient (REF) | payer OTHER, SELFPAY ==
[2024-06-19 09:38] LABS: MANUAL DIFF FLAG NO
[2024-06-19 10:01] LABS: Basophils Absolute Auto 0.1 X10*3/uL (0.0-0.2); Basophils Percent Auto 1.9 % (0-2); Eosinophils Absolute Auto 0.4 X10*3/uL (0.0-0.4); Eosinophils Percent Auto 5.9 % (0-4); Hematocrit 35.4 % (37.0-47.0); Hemoglobin 10.8 g/dl (12.0-16.0); Imm Gran Abs Auto 0.02 X10*3/uL (0.00-0.03); Imm Gran Pct Auto 0.3 % (0.0-0.4); Lymphocytes Absolute Auto 1.4 X10*3/uL (1.2-4.9); Lymphocytes Percent Auto 19.4 % (20-40); Mean Corpuscular HGB Conc 30.5 g/dl (31.0-35.0); Mean Corpuscular Hemoglobin 23.5 pg (27.0-33.0); Mean Platelet Volume 10.7 fL (9.4-12.3); Monocytes Absolute Auto 0.7 X10*3/uL (0.1-1.2); Monocytes Percent Auto 9.4 % (2-11); Neutrophils Absolute Auto 4.7 x10*3/uL (2.0-8.3); Neutrophils Percent Auto 63.1 % (45-73); Platelet Count 406 X10*3/uL (160-400); Red Cell Distribution Width 22.9 % (11.0-16.0); White Blood Count 7.4 X10*3/uL (4.8-10.8)
[2024-06-19 10:29] LABS: Iron 270 mcg/dL (30-160); Percent Iron Saturation 68 % (15-50); Total Iron Binding Capacity 397 mcg/dL (228-428); Unsaturated Iron Binding 127 ug/dL
== END 2024-06-19 09:36 | disposition home or self-care (01) ==
LOC: HO.LNP 09:35
PROVIDERS: Visit Provider Internal Medicine
DX: D50.0 Iron deficiency anemia secondary to blood loss (chronic) (principal)
CPT/HCPCS: 83540; 85025

== ENCOUNTER 2024-08-07 10:40 | Outpatient (REF) | payer OTHER, SELFPAY ==
[2024-08-07 10:42] LABS: MANUAL DIFF FLAG NO
[2024-08-07 10:58] LABS: Basophils Absolute Auto 0.1 X10*3/uL (0.0-0.2); Basophils Percent Auto 2.2 % (0-2); Eosinophils Absolute Auto 0.4 X10*3/uL (0.0-0.4); Eosinophils Percent Auto 5.9 % (0-4); Hematocrit 32.5 % (37.0-47.0); Hemoglobin 10.2 g/dl (12.0-16.0); Imm Gran Abs Auto 0.01 X10*3/uL (0.00-0.03); Imm Gran Pct Auto 0.2 % (0.0-0.4); Lymphocytes Absolute Auto 1.5 X10*3/uL (1.2-4.9); Lymphocytes Percent Auto 23.4 % (20-40); Mean Corpuscular HGB Conc 31.4 g/dl (31.0-35.0); Mean Corpuscular Hemoglobin 24.5 pg (27.0-33.0); Mean Corpuscular Volume 77.9 fL (80.0-98.0); Mean Platelet Volume 10.6 fL (9.4-12.3); Monocytes Absolute Auto 0.6 X10*3/uL (0.1-1.2); Neutrophils Absolute Auto 3.8 x10*3/uL (2.0-8.3); Neutrophils Percent Auto 59.3 % (45-73); Platelet Count 424 X10*3/uL (160-400); Red Blood Count 4.17 X10*6/uL (4.20-5.50); Red Cell Distribution Width 16.3 % (11.0-16.0); White Blood Count 6.3 X10*3/uL (4.8-10.8)
--- OUTSIDE RECORDS SUMMARY | 2024-08-07 11:11 | XMS_ITS | Encounter Summary ---
Author Organization [facility] Address [address] [place] [address] Care Team Providers Care Ornamental Iron Worker Helper Name Role Phone Moise Valdovinos Primary Care Provider [phone] Encounter Details Date Type Department Care Team (Late st Contact Info) Description 09/09/2017 Orders Only [facility] TRUCKLOAD OWNER OPERATOR [address] [facility] [address] [place] [address] Provider, [facility] Social History Tobacco Use Types Packs/Day Years [...] of this encounter Results * Due to [place] state law, this organization might not be sharing negative HIV tests. * US TRANSVAGINAL (FOR IVF USE ONLY)FC (09/09/2017 7:43 AM EDT) Narrative [facility] - 09/09/2017 7:44 AM EDT Study performed for the acquisition of images only. ??No professional Interpretation required. us Repsc Provider IMG US OBGYN ORDERABLES Final Re sult [facility] documented in this encounter Visit Diagnoses Diagnosis Infertility, female Female infertility of unspecified origin Infertility, female Female infertility of unspecified origin documented in this encounter Care Teams Ornamental Iron Worker Helper Relationship Specialty Start Date End Date Moise Valdovinos MOISE VALDOVINOS [address] [place] [address] [place] [phone] PCP - General Internal Medicine 05/17/17 documented as of this encounter
--- OUTSIDE RECORDS SUMMARY | 2024-08-07 11:11 | XMS_ITS | Clinical Summary ---
Author Organization [facility] [address] [facility] Address [address] [place] [address] Phone Care Team Providers Care Furniture Removalist Name Role Phone Moise Mcbride MD Primary Care Provider Encounters Date Type Department Care Team Description 07/24/2024 Telephone Gastroenterology - [address] [phone] Jayla Hebert MD 07/22/2024 Telephone Gastroenterology - [address] [place] [phone] Jayla Hebert MD MISSING INFORMATION from Last 3 Months Social History Tobacco Use Types Packs/Day Years Used Date Smoking Tobacco: Never Assessed Comments Unknown Sex and Gender Information Value Date Recorded Sex Assigned at Not on file Legal Sex Female 2:46 PM EDT Gender Identity Not on file Sexual Orientation Not on file Plan of Treatment Upcoming Encounters Date Type Department Care Team ([facility] st Contact Info) Description 08/13/2024 9:40 AM EDT Consult Gastroenterology - [address] [place] [phone] Edie Quevedo, INVESTMENT ACCOUNTANT [address] [address] Health Maintenance Due Date Last Done Comments Breast Cancer Screening 1977 DTaP,Tdap,and Td Vaccines (1 - Tdap) 1996 Hepatitis B Vaccines (1 of 3 - 19+ 3-dose series) 1996 Cervical Cancer Screening: P ap Smear 1998 COVID-19 Vaccine ( - 2023-2 5 season) 2023 Depression Screening 06/24/2024 HIV Screening 06/24/2024 Hepatitis C Screening 06/24/2024 Social Influencers of Health Screening 06/24/2024 Influenza Vaccine (Season Ended) 2024 Colorectal Cancer Screening: Colonoscopy 06/23/2034 06/23/2024 HIB Vaccines Aged Out No longer eligi ble based on patient's age to complete this topic HPV Vaccines Aged Out No longer eligi ble based on patient's age to complete this topic Hepatitis A Vaccines Aged Out No long er eligible based on patient's age to complete this topic IPV Vaccines Aged Out No longer eligi ble based on patient's age to complete this topic MMR Vaccines Aged Out No longer eligi ble based on patient's age to complete this topic Meningococcal ACWY Vaccine Aged Out N o longer eligible based on patient's age to complete this topic Meningococcal B Vaccine Aged Out No l onger eligible based on patient's age to complete this topic Pneumococcal Vaccine: Pediat rics (0 to 5 Years) and At-Risk Patients (6 to 64 Years) Aged Out No longer eligi ble based on patient's age to complete this topic RSV Immunization Patients Un jimmie 20 months Aged Out No longer eligible b ased on patient's age to complete this topic Varicella Vaccines Aged Out No longer eligible based on patient's age to complete this topic Procedures Procedure Name Priority Date/Time Associated Diagnosis Comments COLONOSCOPY Routine 06/23/2024 2:49 PM EDT from Last 3 Months Results * COLONOSCOPY (06/23/2024 2:49 PM EDT) Anatomical Region Laterality Modality Endoscopy Historical Provider GI~PROCEDURE ORDERABLES F inal Result from Last 3 Months Insurance [facility] [place] [id number] Care Teams Furniture Removalist Relationship Specialty Start Date End Date Moise Mcbride MD [address] [place] [address] [address] [place] [address] PCP - General Internal Medicine 07/22/24
--- OUTSIDE RECORDS SUMMARY | 2024-08-07 11:11 | XMS_ITS | Encounter Summary ---
Author Organization [facility] Address [address] [place] [address] Care Team Providers Care Naval Architect Specialist Name Role Phone Moise Valdovinos Primary Care Provider Encounter Details Date Type Department Care Team (Late st Contact Info) Description 07/09/2017 Orders Only [facility] MANAGER OF CHANGE [address] [facility] [address] [place] [address] Provider, [facility] Social History Tobacco Use Types Packs/Day [...] USE ONLY)FC (07/16/2017 7:55 AM EDT) Narrative [facility] - 07/16/2017 7:55 AM EDT Study performed for the acquisition of images only. ??No professional Interpretation required. us Repsc Provider IMG US OBGYN ORDERABLES Final Re sult [facility] documented in this encounter Visit Diagnoses Diagnosis Infertility, female Female infertility of unspecified origin Infertility, female Female infertility of unspecified origin documented in this encounter Care Teams Naval Architect Specialist Relationship Specialty Start Date End Date Moise Valdovinos MOISE VALDOVINOS [address] [place] [address] [place] [phone] PCP - General Internal Medicine 05/17/17 documented as of this encounter
--- OUTSIDE RECORDS SUMMARY | 2024-08-07 11:11 | XMS_ITS | Encounter Summary ---
Author Organization [facility] Address [address] [place] [address] Care Team Providers Care Broth Mixer Name Role Phone Moise Valdovinos Primary Care Provider [phone] Encounter Details Date Type Department Care Team (Late st Contact Info) Description 08/06/2017 Orders Only [facility] PRODUCT ENGINEERING MANAGER [address] [facility] [address] [place] [address] Provider, [facility] Social History Tobacco Use Types Packs/Day [...] of this encounter Results * Due to [place] state law, this organization might not be sharing negative HIV tests. * US TRANSVAGINAL (FOR IVF USE ONLY)FC (08/26/2017 8:08 AM EDT) Narrative [facility] - 08/26/2017 8:08 AM EDT Study performed for the acquisition of images only. ??No professional Interpretation required. us Repsc Provider IMG US OBGYN ORDERABLES Final Re sult [facility] documented in this encounter Visit Diagnoses Diagnosis Female infertility Female infertility of unspecified origin Female infertility Female infertility of unspecified origin documented in this encounter Care Teams Broth Mixer Relationship Specialty Start Date End Date Moise Valdovinos MOISE VALDOVINOS [address] [place] [address] [place] [phone] PCP - General Internal Medicine 05/17/17 documented as of this encounter
--- OUTSIDE RECORDS SUMMARY | 2024-08-07 11:11 | XMS_ITS | Encounter Summary ---
Author Organization [facility] Address [address] [place] [address] Care Team Providers Care Outpatient Receptionist Name Role Phone Moise Valdovinos Primary Care Provider [phone] Encounter Details Date Type Department Care Team ([facility] st Contact Info) Description 11/07/2017 Orders Only [facility] OVERLAY PLASTICIAN [address] [facility] [address] [place] [address] Provider, [facility] Social History Tobacco Use Types Packs/Day [...] of this encounter Results * Due to [place] state law, this organization might not be sharing negative HIV tests. * US TRANSVAGINAL (FOR IVF USE ONLY)FC (11/07/2017 7:46 AM EDT) Narrative [facility] - 11/07/2017 7:46 AM EDT Study performed for the acquisition of images only. ??No professional Interpretation required. us Repri Provider IMG US OBGYN ORDERABLES Final Re sult [facility] documented in this encounter Visit Diagnoses Diagnosis Infertility, female Female infertility of unspecified origin Infertility, female Female infertility of unspecified origin documented in this encounter Care Teams Outpatient Receptionist Relationship Specialty Start Date End Date Moise Valdovinos MOISE VALDOVINOS [address] [place] [address] [place] [phone] PCP - General Internal Medicine 05/17/17 documented as of this encounter
--- OUTSIDE RECORDS SUMMARY | 2024-08-07 11:12 | XMS_ITS ---
Author Organization Moise Mcbride MD Address [address] [place], [place] [id number] Care Team Providers Care Mortgage Professional Name Role Phone Moise Mcbride Primary Care Provider Allergies Allergen (clinical drug ingredient) Drug/Non Drug Allergy documented on EMR Reaction Allergy Type Onset Date Status tape from (uncoded) rash Allergy Active seasonal allergies (uncoded) cough/phlegm Allergy Active REASON FOR VISIT 6 WK F/U Medications Medication SIG (Take, Route, Frequency, Duration) Notes Start Date End Date Status Kurvelo 0.15-30 MG-MCG 1 tablet Orally O nce a day for 28 day(s) Active Albuterol Sulfate HFA 108 (90 Base) MCG/ACT [...] as needed for 10 days 03/22/2022 Active Ferrous Sulfate Acti ve Vital Signs Blood pressure systolic 120 mm Hg 07/11/19 25 Blood pressure diastolic 74 mm Hg 025 Height 67.5 in 07/10/2024 Weight 168 lbs 07/10/2024 BMI 25.92 kg/m2 07/10/2024 weight is up 8 pounds since 05-22-24 Encounters Encounter Location Date Provider Diagnosis Moise Mcbride MD [address] [place] [phone] 07/10/2024 Moise Mcbride Migraine without aura and without status migrainosus, not intractable G43.009 and Iron deficiency anemia due to chronic blood loss D50.0 Assessments Encounter Date Diagnosis (ICD Code) Assessment Notes Treatment Notes Treatment Clinical Notes Section Notes 07/10/2024 Migraine without aura and without status migrainosus, not intractable (ICD-10 - G43.009) 07/10/2024 Iron deficiency anemia due to chronic blood loss (ICD-10 - D50.0) doing much better. but saturation remains high. will decrease to every other day Plan Of Treatment Medication Medication Name Sig Start Date Stop Date Notes Imitrex 50 MG 1 tablet at least 2 hours between doses as needed Orally Twice a day as needed for 10 days 03/22/2022 Treatment Notes Assessment Notes Iron deficiency anemia due t o chronic blood loss doing much better. but saturation remain s high. will decrease to every other day Pending Test Test Name Order Date Complete Blood Count Auto Diff IRON PROFILE 07/10/2024 Next Appt Details Follow Up: 4 Months, Reason: Provider Name:Moise morrissey, 11/09/2024 09:00:00 AM, [address] [place] [address], [address], [phone], Provider Name:Moise morrissey, 04/01/2025 07:30:00 AM, [address] [place] [address], [address], [id number], Provider Name:Moise morrissey, 04/08/2025 09:30:00 AM, [address] [place] [address], [address], [phone], Progress Notes * GENE FERNANDESOB: 8 (48 yo F)Acc No.[id number]:07/10/2024 Progress Notes Patient:?CELESTINA FERNANDES Provider:?Moise Mcbride MD :1975???Age:48 Y???Sex:Female D ate:07/10/2024 Address:[address], [place], [id number] Subjective: * Chief Complaints: * ???6 WK F/U * HPI: ???Symptom(s):? patient is a 48 yo female here for 6 week follow up visit. * ROS:?General/Constitutional:?Denies?Chills.?Denies?Fatigue.?Denies?Fever.?Denies?Headache.?ENT:?Denies?Sore throat.?Respiratory:?Denies?Cough.?Denies?Shortness of breath at rest.?Denies?Shortness of breath with exertion.?Gastrointestinal:?Denies?Diarrhea.?Denies?Nausea.? * Medical History:? * Surgical History:? * Hospitalization/Major Diagno stic Procedure:? * Medications:?TakingFerrous S ulfate Kurvelo 0.15-30 MG-MCG Tablet 1 tablet Orally Once a day Albuterol Sulfate HFA 108 (90 Base) MCG/ACT Aerosol Solution 1 puff as needed Inhalation every 4 hrs Imitrex 50 MG Tablet 1 tablet at least 2 hours between doses as needed Orally Twice a day as needed Taking Ferrous Sulfate Taking Kurvelo 0.15-30 MG-MCG Tablet 1 tablet Orally Once a day Taking Albuterol Sulfate HFA 108 (90 Base) MCG/ACT Aerosol Solution 1 puff as needed Inhalation every 4 hrs Taking Imitrex 50 MG Tablet 1 tablet at least 2 hours between doses as needed Orally Twice a day as needed Not-Taking/PRNOcuflox 0.3 % Solution as directed Ophthalmic 2 drops rt eye 4 times a day Not-Taking/PRN Ocuflox 0.3 % Solution as directed Ophthalmic 2 drops rt eye 4 times a day DiscontinuedLevothyroxine Sodium 125 MCG Tablet 1 tablet Orally Once a day Medication List reviewed and reconciled with the patientDiscontinued Levothyroxine Sodium 125 MCG Tablet 1 tablet Orally Once a day Medication List reviewed and reconciled with the patient * Allergies:?seasonal allergie s: cough/phlegmtape from : rashyes[Allergies Verified] Objective: * Vitals:?Ht: 67.5, Wt: 168, B OH:25.92, BP:120/74, Wt-k.2. weight is up 8 pounds since 05-22-24. * ???Past Orders: ???Lab:Complete Blood Count Auto Diff (Order Date - 06/19/2024) (Collection Date & Time - 06/19/2024 08:00 AM) ? Value Reference Range ?White Blood Count 7.4 4. 8-10.8 - X10*3/uL ?Red Blood Count 4.60 4.20 -5.50 - X10*6/uL ?Hemoglobin 10.8 L 12.0-16.0 - g/dl ?Hematocrit 35.4 L 37.0-47.0 - % ?Mean Corpuscular Volume 77.0 L 80.0-98.0 - fL ?Mean Corpuscular Hemoglobin 23.5 L 27.0-33.0 - pg ?Mean Corpuscular HGB Conc 30.5 L 31.0-35.0 - g/dl ?Red Cell Distribution Width 22.9 H 11.0-16.0 - % ?Platelet Count 406 H 160-4 00 - X10*3/uL ?Mean Platelet Volume 10.7 9.4-12.3 - fL ?Neutrophils Percent Auto 63.1 45-73 - % ?Imm Gran Pct Auto 0.3 0. 0-0.4 - % ?Lymphocytes Percent Auto 19.4 L 20-40 - % ?Monocytes Percent Auto 9.4 2-11 - % ?Eosinophils Percent Auto 5.9 H 0-4 - % ?Basophils Percent Auto 1.9 0-2 - % ?NRBC Pct Auto 0.0 0.0-0. 2 - /100WBC ?Neutrophils Absolute Auto 4.7 2.0-8.3 - x10*3/uL ?Imm Gran Abs Auto 0.02 0. 00-0.03 - X10*3/uL ?Lymphocytes Absolute Auto 1.4 1.2-4.9 - X10*3/uL ?Monocytes Absolute Auto 0.7 0.1-1.2 - X10*3/uL ?Eosinophils Absolute Auto 0.4 0.0-0.4 - X10*3/uL ?Basophils Absolute Auto 0.1 0.0-0.2 - X10*3/uL ?NRBC Abs Auto 0.000 0.0-0. 012 - X10*3/uL ???Lab:IRON PROFILE (Order D ate - 06/19/2024) (Collection Date & Time - 06/19/2024 08:00 AM) ? Value Reference Range ?Iron 270 H 30-160 - mcg/dL ?Total Iron Binding Capacity 397 228-428 - mcg/dL ?Percent Iron Saturation 68 H 15-50 - % ?Unsaturated Iron Binding 127 - ug/dL * Examination: ???General Examination: ?GENERAL APPEARANCE:?alert, well hydrated, in no distress.?HEAD:?normocephalic.?SKIN:?good turgor.?HEART:?regular rate and rhythm, no murmurs, rubs, gallops.?LUNGS:?clear to auscultation bilaterally.? Assessment: * Assessment: 1.?Iron deficiency anemia du e to chronic blood loss - D50.0 (Primary)???2.?Migraine without aura and without status migrainosus, not intractable - G43.009??? Plan: * Treatment: 2.?Migraine without aura and without status migrainosus, not intractable? Refill Imitrex Tablet, 50 MG, 1 tablet at least 2 hours between doses as needed, Orally, Twice a day as needed, 10 days, 10, Refills 5.?? * Procedure Codes:? * Follow Up:?4 Months * * Sign off status: Completed true * Provider:?Moise Mcbride MD Date:?0 07/10/2024 Generated for Magda smith/Karen/Kieshasmitting on:?08/07/2024 11:11 AM EDT History and Physical Notes * HPI (History of Present Illness) Category Sub-Category Detail Notes Category Not es Symptom(s) patient is a 48 yo female here for 6 week follow up visit Examination Category Sub-Category Detail Notes Category Not es General Examination GENERAL APPEARANCE: alert, w ell hydrated, in no distress HEAD: normocephalic HEART: regular rate and rhy thm, no murmurs, rubs, gallops LUNGS: clear to auscultatio n bilaterally SKIN: good turgor
--- OUTSIDE RECORDS SUMMARY | 2024-08-07 11:12 | XMS_ITS | Encounter Summary ---
Author Organization [facility] Address [address] [place] [address] Care Team Providers Care Server Engineer Name Role Phone Moise Valdovinos Yoav Primary Care Provider [phone] Encounter Details Date Type Department Care Team (Late st Contact Info) Description 05/27/2017 Orders Only [facility] SUPERVISOR TWISTING DEPARTMENT [address] [facility] [address] [place] [address] Provider, de Social History Tobacco Use Types Packs/Day Years [...] of this encounter Results * Due to [place] state law, this organization might not be sharing negative HIV tests. * US TRANSVAGINAL (FOR IVF USE ONLY)FC (07/02/2017 7:56 AM EDT) Narrative [facility] - 07/02/2017 7:56 AM EDT Study performed for the acquisition of images only. ??No professional Interpretation required. us Repsc Provider IMG US OBGYN ORDERABLES Final Re sult [facility] * US TRANSVAGINAL (FOR IVF USE ONLY)FC (05/27/2017 7:41 AM EST) Narrative [facility] - 05/27/2017 7:41 AM EST Study performed for the acquisition of images only. ??No professional Interpretation required. us Repsc Provider IMG US OBGYN ORDERABLES Final Re sult [facility] documented in this encounter Visit Diagnoses Diagnosis Infertility, female Female infertility of unspecified origin Infertility, female Female infertility of unspecified origin Infertility, female Female infertility of unspecified origin documented in this encounter Care Teams Server Engineer Relationship Specialty Start Date End Date Moise Valdovinos MOISE VALDOVINOS [address] [place] [address] [place] [phone] PCP - General Internal Medicine 05/17/17 documented as of this encounter
--- OUTSIDE RECORDS SUMMARY | 2024-08-07 11:12 | XMS_ITS | Encounter Summary ---
Author Organization [facility] Address [address] [place] [address] Care Team Providers Care Explosive Operator Grenade Name Role Phone Moise Valdovinos Primary Care Provider [phone] Encounter Details Date Type Department Care Team ([facility] st Contact Info) Description 11/21/2017 Orders Only [facility] BILLING SPEC [address] [facility] [address] [place] [address] Provider, [facility] Social History Tobacco Use Types Packs/Day [...] of this encounter Results * Due to [place] state law, this organization might not be sharing negative HIV tests. * US TRANSVAGINAL (FOR IVF USE ONLY)FC (11/21/2017 8:31 AM EDT) Narrative [facility] - 11/21/2017 8:32 AM EDT Study performed for the acquisition of images only. ??No professional Interpretation required. us Repwi Provider IMG US OBGYN ORDERABLES Final Re sult [facility] documented in this encounter Visit Diagnoses Diagnosis Infertility, female Female infertility of unspecified origin Infertility, female Female infertility of unspecified origin documented in this encounter Care Teams Explosive Operator Grenade Relationship Specialty Start Date End Date Moies Valdovinos MOISE VALDOVINOS [address] [place] [address] [place] [phone] PCP - General Internal Medicine 05/17/17 documented as of this encounter
--- OUTSIDE RECORDS SUMMARY | 2024-08-07 11:12 | XMS_ITS | Patient Health Record ---
Author Organization Moise Mcbride MD Address [address] [place], [place] [id number] Care Team Providers Care E Learning Manager Name Role Phone Moise Mcbride Primary Care Provider Allergies Allergen (clinical drug ingredient) Drug/Non Drug Allergy documented on EMR Reaction Allergy Type Onset Date Status tape from (uncoded) rash Allergy Active seasonal allergies (uncoded) cough/phlegm Allergy Active Results Component Value Reference Range Notes Complete Blood Count Auto Di ff Reviewed date:04/02/2024 10:48:30 AM Interpretation:CBAJUSTA 04/02 Performing Lab:[facility], [address] [place] [phone] Notes/Report: White Blood Count 8.7 4.8-10.8 X10*3/uL [...] NRBC Abs Auto 0.000 0.0-0.012 X10*3/uL Comprehensive [place]. Panel Fa st Reviewed date:03/26/2024 01:55:41 PM Interpretation: Performing Lab:[facility], [address] [place] [phone] Notes/Report: Sodium 138 135-145 mmol/L Potassium 4.1 [...] PROFILE Reviewed date:03/26/2024 01:41:31 PM Interpretation: Performing Lab:[facility], [address] [place] [phone] Notes/Report: Iron 15 30-160 mcg/dL Total Iron Binding Capacity 364 228-428 mcg/dL Percent Iron Saturation 4 15-50 % Unsaturated Iron Binding 349 Lipid Panel Reviewed date:03/26/2024 01:51:55 PM Interpretation: Performing Lab:[facility], [address] [place] [phone] Notes/Report: Triglycerides 181 <150 mg/dL Desirable Triglyceride: [...] T4 Reviewed date:03/26/2024 01:43:08 PM Interpretation: Performing Lab:[facility], [address] [place] [phone] Notes/Report: TSH reflex Free T4 5.01 0.32-4.0 uIU/mL UA ClnCatch+Micro w/rflx Cul t Reviewed date:03/26/2024 02:03:01 PM Interpretation: Performing Lab:[facility], [address] [place] [phone] Notes/Report: Urine, Clean Catch Color Urine Yellow Appearance Urine Turbid PH 5.5 5.0-9.0 Glucose Urine UA Negative Negative mg/dL Urine Blood Negative Negative Specific [place] - Urine >= 1.030 1.005-1.025 Urine Protein Trace Neg-Trace mg/dL Urine Ketones Negative Negative mg/dL Nitrite Urine Negative Negative Leukocyte Esterase Urine Small (1+) Negative RBC Urine 0-2 0-2 /HPF WBC Urine 6-10 0-5 /HPF Squamous Epithelial Cell Urine >20 0-2 /HPF Bacteria Urine 2+ None Seen Hyaline Casts Urine 0-2 0-2 /LPF Complete Blood Count Auto Di ff Reviewed date:05/18/2024 05:27:35 PM Interpretation: Performing Lab:[facility], [address] [place] [phone] Notes/Report: White Blood Count 8.5 4.8-10.8 X10*3/uL [...] Abs Auto 0.000 0.0-0.012 X10*3/uL IRON PROFILE Reviewed date:05/18/2024 05:22:02 PM Interpretation: Performing Lab:[facility], [address] [place] [phone] Notes/Report: Iron 279 30-160 mcg/dL Total Iron Binding Capacity 398 228-428 mcg/dL Percent Iron Saturation 70 15-50 % Unsaturated Iron Binding 119 Complete Blood Count Auto Di ff Reviewed date:06/19/2024 01:45:24 PM Interpretation: Performing Lab:[facility], [address] [place] [phone] Notes/Report: White Blood Count 7.4 4.8-10.8 X10*3/uL Red Blood Count 4.60 4.20-5.50 X10*6/uL Hemoglobin 10.8 12.0-16.0 g/dl Hematocrit 35.4 37.0-47.0 % Mean Corpuscular Volume 77.0 80.0-98.0 fL Mean Corpuscular Hemoglobin 23.5 27.0-33.0 pg Mean Corpuscular HGB Conc 30.5 31.0-35.0 g/dl Red Cell Distribution Width 22.9 11.0-16.0 % Platelet Count 406 160-400 X10*3/uL Mean Platelet Volume 10.7 9.4-12.3 fL Neutrophils Percent Auto 63.1 45-73 % Imm Gran Pct Auto 0.3 0.0-0.4 % Lymphocytes Percent Auto 19.4 20-40 % Monocytes Percent Auto 9.4 2-11 % Eosinophils Percent Auto 5.9 0-4 % Basophils Percent Auto 1.9 0-2 % NRBC Pct Auto 0.0 0.0-0.2 /100WBC Neutrophils Absolute Auto 4.7 2.0-8.3 x10*3/u L Imm Gran Abs Auto 0.02 0.00-0.03 X10*3/uL Lymphocytes Absolute Auto 1.4 1.2-4.9 X10*3/u L Monocytes Absolute Auto 0.7 0.1-1.2 X10*3/uL Eosinophils Absolute Auto 0.4 0.0-0.4 X10*3/u L Basophils Absolute Auto 0.1 0.0-0.2 X10*3/uL NRBC Abs Auto 0.000 0.0-0.012 X10*3/uL IRON PROFILE Reviewed date:06/19/2024 01:42:46 PM Interpretation: Performing Lab:[facility], [address] [place] [phone] Notes/Report: Iron 270 30-160 mcg/dL Total Iron Binding Capacity 397 228-428 mcg/dL Percent Iron Saturation 68 15-50 % Unsaturated Iron Binding 127 Complete Blood Count Auto Di ff (Not yet reviewed by provider) Interpretation: Performing Lab:[facility], [address] [place] [phone] Notes/Report: White Blood Count 6.3 4.8-10.8 X10*3/uL Red Blood Count 4.17 4.20-5.50 X10*6/uL Hemoglobin 10.2 12.0-16.0 g/dl Hematocrit 32.5 37.0-47.0 % Mean Corpuscular Volume 77.9 80.0-98.0 fL Mean Corpuscular Hemoglobin 24.5 27.0-33.0 pg Mean Corpuscular HGB Conc 31.4 31.0-35.0 g/dl Red Cell Distribution Width 16.3 11.0-16.0 % Platelet Count 424 160-400 X10*3/uL Mean Platelet Volume 10.6 9.4-12.3 fL Neutrophils Percent Auto 59.3 45-73 % Imm Gran Pct Auto 0.2 0.0-0.4 % Lymphocytes Percent Auto 23.4 20-40 % Monocytes Percent Auto 9.0 2-11 % Eosinophils Percent Auto 5.9 0-4 % Basophils Percent Auto 2.2 0-2 % NRBC Pct Auto 0.0 0.0-0.2 /100WBC Neutrophils Absolute Auto 3.8 2.0-8.3 x10*3/u L Imm Gran Abs Auto 0.01 0.00-0.03 X10*3/uL Lymphocytes Absolute Auto 1.5 1.2-4.9 X10*3/u L Monocytes Absolute Auto 0.6 0.1-1.2 X10*3/uL Eosinophils Absolute Auto 0.4 0.0-0.4 X10*3/u L Basophils Absolute Auto 0.1 0.0-0.2 X10*3/uL NRBC Abs Auto 0.000 0.0-0.012 X10*3/uL Free T4 (Free Thyroxine) Reviewed date:03/26/2024 01:56:34 PM Interpretation: Performing Lab:[address] [phone] Notes/Report: Free T4 (Free Thyroxine) 0.77 0.71-1.85 ng/dL Urine Culture Reviewed date:03/27/2024 12:28:44 PM Interpretation: Performing Lab:[address] [phone] Notes/Report: Urine Culture Report Result Urine Culture > 100,000 cfu/ml Urine Culture Mixed bacterial andrew a characteristic of Urine Culture urogenital contamination. O:STRAGA Strep agalactiae (Gr p B) Urine Culture Quant Urine Culture 10,000 to 50,000 cfu/mL Urine Culture Susc N/A Urine Culture Susceptibility not routinely performed on this isolate. MM tomosynthesis screening B I Reviewed date:05/05/2024 12:45:46 PM Interpretation: Performing Lab: Notes/Report: [facility] [address] [place] [address] Mammography Report Signed Patient: Celestina Fernandes MR#: [id number] 23 : 1975 Acct:[id number] Age/Sex: 48 / F ADM Date: 04/28/24 Loc: HO.MAMMO Attending Dr: Moise Mcbride MD Ordering Physician: Moise Mcbride MD Results: 1Ne gative Date of Service: 04/28/24 Follow Up: 1 Year From Orig ina Mammogram Procedure(s): MM tomosynthesis screening BI Accession Number(s): [id number] cc: Moise Mcbride MD EXAMINATION: MM SCREENING DIGITAL BREAST TOMOSYNTHESIS, BILATERAL CLINICAL INFORMATION: Screening. Asymptomatic. COMPARISON: Mammography: Comparison is made with available priors TECHNIQUE: Digital breast mammography with tomosynthesis is performed in both the craniocaudal and mediolateral oblique views along with computer-aided detection (CAD). FINDINGS: The breasts are heterogeneously dense, which [...] target due date for their next mammogram. Electronically signed by: Kasandra Avila DO 05/04/2024 05:13 PM EST Dictated By: Kasandra Avila DO Signed By: <Electronically signed by Kasandra Avila DO in OV> 05/04/24 1713 DD/ 1030 TD/TT: 04/28/24 1050 Workflow Developer: [facility] [address] [place] [address] Mammography Report Signed Patient: Simón Fernandes MR#: [id number] 23 : 1975 Acct:[id number] Age/Sex: 48 / F ADM Date: 04/28/24 Loc: HO.MAMMO Attending Dr: Moise Mcbride MD Ordering Physician: Moise Mcbride MD Results: 1Ne gative Date of Service: 04/28/24 Follow Up: 1 Year From Orig inal Mammogram Procedure(s): MM tomosynthesis screening BI Accession Number(s): [id number] cc: Moise Mcbride MD EXAMINATION: MM SCREENING DIGITAL BREAST TOMOSYNTHESIS, BILATERAL CLINICAL INFORMATION: Screening. Asymptomatic. COMPARISON: Mammography: Compari son is made with available priors TECHNIQUE: Digital breast mammography with tomosynthesis is performed in both the craniocaudal and mediolateral oblique views along with computer-aided detection (CAD). FINDINGS: The breasts are heterogeneously dense, which may obscure small masses (ACR BI-RADS breast composition Category c). There are no significant masses, abnormal calcifications, or other abnormalities. MM/MM tomosynthesis screening BI IMPRESSION: No mammographic evidence of malignancy. ASSESSMENT: BI-RADS BI-RADS 1 - Negative RECOMMENDATION: Routine annual mammography screening. 1 year F/U This examination sonya uld not preclude the clinical evaluation of a suspicious palpable abnormality. This patient's information was entered into a reminder system with a target due date for their next mammogram. Electronically nba d by: Kasandra Avila DO 05/04/2024 05:13 PM EST Dictated By: Kasandra Avila DO Signed By: <Electronically signed by Kasandra Avila DO in OV> 05/04/24 1713 DD/ 1030 TD/TT: 04/28/24 1050 Workflow Developer: Reason For Referral Reason crohns colitis Diagnosis 1 Crohns colitis, with out complications (K50.10) Referral Organization Moise Mcbride MD Referring Provider First Name Moise Referring Provider Last Name Reed Referring Provider Speciality Internal M edicine Referred Provider THERESA GARCIA Referred Provider Specialty Gastroentero logy General Notes Veronique Gr 0 07/17/2024 10:55:38 AM info faxedMaile Annette 07/21/2024 10:24:24 AM >was told to refaxMaile Annette 07/24/2024 03:04:18 PM > patient is aware if appt Referral Priority Routine Referral Appointment Date 08/13/2024 Medications Medication SIG (Take, Route, Frequency, Duration) Notes Start Date End Date Status Ferrous Sulfate Acti ve Kurvelo 0.15-30 MG-MCG 1 tablet Orally O [...] as needed for 10 days 03/22/2022 Active Immunizations Vaccine Route Administration Date Status Comme nts Fluarix Quadrivalent IM Intramuscular 12/27/2015 Administe red Fluarix Quadrivalent Unknown 12/03/2017 Administered Fluarix Quadrivalent IM Intramuscular 01/20/2019 Administe red SARS-COV-2 Moderna Unknown 07/16/2020 Administered SARS-COV-2 Moderna Unknown 06/17/2020 Administered Fluarix Quadrivalent IM Intramuscular 12/30/2020 Administe red Fluarix Quadrivalent IM Intramuscular 03/08/2022 Administe red Social History Tobacco Use: Social History Observation [...] Problem Status W/U Status Risk Notes Problem 678615460 Annual physical exam (Z00.00) Active confirmed Problem 025125010 Lumbar disc dise ase (M51.9) Active confirmed Problem 391653172 Acquired hypothyroidism (E03.9) Active confirmed Problem 415372570 Migraine without aura and without status migrainosus, not intractable (G43.009) Active confirmed Problem 70602479 Iron deficiency anemia due to chronic blood loss (D50.0) Active confirmed Problem 67516037 Crohns colitis, without complications (K50.10) Active confirmed Problem Elevated LDL cholesterol level (E78.00) Active confirmed Problem 10699475 Pagophagia (F50.89) Active confirmed Vital Signs Blood pressure diastolic 74 mm Hg 07/10/2024 allyssa ght is up 8 pounds since 05-22-24 Height 67.5 in 07/10/2024 weight is up 8 pounds since 05-22-24 Blood pressure systolic 120 mm Hg 07/10/2024 weig ht is up 8 pounds since 05-22-24 Weight 168 lbs 07/10/2024 weight is up 8 pounds since 05-22-24 BMI 25.92 kg/m2 07/10/2024 weight is up 8 pounds since 05-22-24 Encounters Encounter Location Date Provider Diagnosis Moise Mcbride MD [address] [place] [address] [place] [phone] 03/26/2024 Moise Mcbride Blood tests for routine general physical examination Z00.00 ; Acquired hypothyroidism E03.9 ; Iron deficiency anemia due to chronic blood loss D50.0 and Elevated LDL cholesterol level E78.00 Moise Mcbride MD [address] [place] [phone] 05/18/2024 Moisemain Thompsonardier Migraine without aur a and without status migrainosus, not intractable G43.009 Moise Mcbride MD [address] [place] [id number] 06/19/2024 Moise Mcbride Iron deficiency anem ia due to chronic blood loss D50.0 Moise Mcbride MD [address] [place] [id number] 08/07/2024 Moise Mcbride Iron deficiency anem ia due to chronic blood loss D50.0 Moise Mcbride MD [address] [place] [id number] 04/02/2024 Moise Mcbride Iron deficiency anem ia due to chronic blood loss D50.0 ; Annual physical exam Z00.00 ; Crohns colitis, without complications K50.10 ; Migraine without aura and without status migrainosus, not intractable G43.009 ; Depression screening Z13.31 and Persistent cough R05.3 Moise Mcbride MD [address] [place] [id number] 05/22/2024 Moisemain Thompsonardier Migraine without aur a and without status migrainosus, not intractable G43.009 and Iron deficiency anemia due to chronic blood loss D50.0 Moise Mcbride MD [address] [place] [id number] 07/10/2024 Moise Bombardier Migraine without aur a and without status migrainosus, not intractable G43.009 and Iron deficiency anemia due to chronic blood loss D50.0 Moise Mcbride MD [address] [place] [id number] 09/13/2023 Moise Bombardier Migraine without aur a and without status migrainosus, not intractable G43.009 Assessments Encounter Date Diagnosis (ICD Code) Assessment Notes Treatment Notes Treatment Clinical Notes Section Notes 03/26/2024 Blood tests for routine general physical examination (ICD-10 - Z00.00) 03/26/2024 Acquired hypothyroidism (ICD-10 - E03.9) 05/18/2024 Migraine without aura and without status migrainosus, not intractable (ICD-10 - G43.009) 06/19/2024 Iron deficiency anemia due to chronic blood loss (ICD-10 - D50.0) 08/07/2024 Iron deficiency anemia due to chronic blood loss (ICD-10 - D50.0) 04/02/2024 Iron deficiency anemia due to chronic blood loss (ICD-10 - D50.0) to get back on iron and will repeat cbc in 6 weeks, pending future labs 04/02/2024 Annual physical exam (ICD-10 - Z00.00) labs reviewed and discussed with patient 05/22/2024 Migraine without aura and without status migrainosus, not intractable (ICD-10 - G43.009) doing great on immetrex, will contnue current regiment 07/10/2024 Migraine without aura and without status migrainosus, not intractable (ICD-10 - G43.009) 09/13/2023 Migraine without aura and without status migrainosus, not intractable (ICD-10 - G43.009) 03/26/2024 Iron deficiency anemia due to chronic blood loss (ICD-10 - D50.0) 04/02/2024 Crohns colitis, without complications (ICD-10 - K50.10) is going to get back to gastro 05/22/2024 Iron deficiency anemia due to chronic blood loss (ICD-10 - D50.0) is improving iron came up extremely ' will recheck in one month 07/10/2024 Iron deficiency anemia due to chronic blood loss (ICD-10 - D50.0) doing much better. but saturation remains high. will decrease to every other day 03/26/2024 Elevated LDL cholesterol level (ICD-10 - E78.00) 04/02/2024 Migraine without aura and without status [...] few weeks to return Plan Of Treatment Pending Test Test Name Order Date MAMMOGRAM DIGITAL BILATERAL SCREEN 02/04 MAMMOGRAM DIGITAL BILATERAL SCREEN 02/13 Complete Blood Count Auto Diff 5 IRON PROFILE 08/07/2024 Next Appt Details Provider Name:Moise Wooten ier, 11/09/2024 09:00:00 AM, [address] [place] [address], Suite [facility], [place], [place], [phone], Provider Name:Moise Wooten ier, 04/01/2025 07:30:00 AM, [address] [place] [address], [address], [place], [place], [phone], Provider Name:Moise Wooten ier, 04/08/2025 09:30:00 AM, [address] [place] [address], Suite [facility], [place], [place], [phone], Insurance Providers Payer Name Payer Address Payer Phone Subscriber Number Group Number Insured Name Patient Relationship to Insured Coverage Start Date Coverage End Date [facility] [address] [place], [place] [id number] [place] [address],CELESTINA GOMEZ Self - patient is the insured Medical (General) History Medical History History ICD Code crohn's disease - diagnosed in 1998 not taking any meds at this time but usually takes asachol if needed. colonoscopy - 11/18/14
--- OUTSIDE RECORDS SUMMARY | 2024-08-07 11:12 | XMS_ITS | Clinical Summary ---
Author Organization [facility] Address [address] [place] [address] Care Team Providers Care Stock Preparation Operator Name Role Phone Reed Moise P Primary Care Provider [phone] Social History Tobacco Use Types Packs/Day Years [...] patient's age to complete this topic Insurance [facility] Care Teams Stock Preparation Operator Relationship Specialty Start Date End Date Moise Valdovinos MOISE VALDOVINOS [address] [place] [address] [place] [phone] PCP - General Internal Medicine 05/17/17
--- OUTSIDE RECORDS SUMMARY | 2024-08-07 11:12 | XMS_ITS ---
Author Organization Moise Mcbride MD Address [address] [place], [place] [phone] Care Team Providers Care Systems Planner Name Role Phone Moise Mcbride Primary Care Provider Results Component Value Reference Range Notes Complete Blood Count Auto Di ff (Not yet reviewed by provider) Interpretation: Performing Lab:[facility], [address] [place] [phone] Notes/Report: White Blood Count 6.3 4.8-10.8 X10*3/uL [...] X10*3/uL NRBC Abs Auto 0.000 0.0-0.012 X10*3/uL REASON FOR VISIT CBC with Diff , Iron profile Encounters Encounter Location Date Provider Diagnosis Moise Mcbride MD [address] [place] [phone] 08/07/2024 Moise Mcbride Iron deficiency anemia due to chronic blood loss D50.0 Assessments Encounter Date Diagnosis (ICD Code) Assessment Notes Treatment Notes Treatment Clinical Notes Section Notes 08/07/2024 Iron deficiency anemia due to chronic blood loss (ICD-10 - D50.0) Plan Of Treatment Pending Test Test Name Order Date Complete Blood Count Auto Diff IRON PROFILE 08/07/2024 Next Appt Details Provider Name:Moise morrissey, 11/09/2024 09:00:00 AM, [address] [place] [address], [phone], Provider Name:Moise morrissey, 04/01/2025 07:30:00 AM, [address] [place] [address], [phone], Provider Name:Moise morrissey, 04/08/2025 09:30:00 AM, [address] [place] [address], [phone], Progress Notes * GENE FERNANDESOB: 8 (48 yo F)Acc No.[id number]:08/07/2024 Progress Note Patient:?CELESTINA FERNANDES Provider:?Moise Mcbride MD :1975???Age:48 Y???Sex:Female D ate:08/07/2024 Address:[address], [place], [id number] Subjective: * Chief Complaints: * ???1. CBC with Diff , Iron p rofile. * Medical History:? Objective: * Vitals:? Assessment: * Assessment: 1.?Iron deficiency anemia du e to chronic blood loss - D50.0??? Plan: * Treatment: * Procedure Codes:?07828 VENIP UNCT, ROUTINE* * * The named appointment provid er may or may not be the originator of this progress note, and it is not deemed complete until electronically signed by the appointment provider. Sign off status: Pending * Provider:?Moise Mcbride MD Date:?0 08/07/2024 Generated for Magda smith/Karen/Kieshasmitting on:?08/07/2024 11:12 AM EDT
--- OUTSIDE RECORDS SUMMARY | 2024-08-07 11:12 | XMS_ITS | Data Portability ---
Author Organization [facility], [facility] Address [address] [facility] [address] [place] [address] Care Team Providers Care Painting Supervisor Name Role Phone LILLIANA VALDOVINOS Primary Care Provider [phone] Assessment No assessment recorded. Plan of Treatment Reminders Order Date Submit Date Provider Last Modified By Organization Details Last Modified Time Details Appointments None recorded. Lab fecal occult blood, stool 2015 Thom Fontaine MD, [address] [place], [address], 6 17:38:30 mononucleos is, heterophile Ab, blood 2015 016 camille Fontaine MD, [address] [place], [address], 6 17:38:30 CBC w/ auto diff 2015 Thom Fontaine MD, [facility], [address], 6 17:38:30 Referral None recorded. Procedures None recorded. Surgeries None recorded. Imaging x-ray, chest, 2 view 2015 Thom Fontaine MD, [address] [place], [address], 6 17:38:30 Medication Orders Zithromax Z-Nael 250 mg tablet 2015 Thom obrien [id number], [address], [place], [address], 6 17:38:30 promethazin e 6.25 mg-codeine 10 mg/5 mL syrup 2015 016 camille [id number], [address], [place], [address], 6 17:38:30 Patient TargetsNo targets recorded. Patient InstructionsNo instructions recorded. Reason for Referral None Reported. Results Created Date Observation Date Name Description Value Unit Range Abnormal Flag Note LastModifiedBy Organization Detail LastModifiedTime 05/07/19 16 05/07/2015 monon ucleo sis, heter ophil e Ab, blood Result negati ve Not Available Femi Lee[address] [place], [address], 05/07/2015 14:18:46 05/07/19 16 05/07/2015 fecal occul t blood , stool In Office Occult Blood negati [place], [address], 05/07/2015 12:10:48 05/07/19 16 05/07/2015 CBC w/ auto diff Unknown Analyte abnorm al abnormal Not Available Femi Lee[address] [place], [address], 05/07/2015 11:34:46 05/07/19 16 05/07/2015 x-ray , chest , 2 view Result [place], [address], 05/07/2015 11:34:46 05/10/19 16 05/10/2015 x-ray , chest , 2 view No observ ation record ed. camille Not Available 2015 16:54:42 Result Notes None recorded. Problems Name Problem SNOMED Code Status Onset Date Resolution Date Notes Provider Name and Address Organization Details Recorded Time Productive cough -green sputum 407646174 Active keara montenegro [place] - [facility] 6 17:38:30 Bacterial infectious disease 89328857 Active keara montenegro [facility] 6 17:38:30 Anemia 656764618 Active keara montenegro [facility] 6 17:38:30 Fatigue 49889491 Active keara montenegro [facility] 6 17:38:30 Problem Notes None recorded. Procedures Surgical History Date Name Laterality Status Provider Name and Address Organization Details Recorded Time 0 Caesarean Section completed Lilli teague [facility] 05/07/2015 11:23:50 Imaging Results Imaging Date [...] Updated DateTime 6 22.8 kg/m2 12 /min 42532.8 555 g 92 /min 172.72 cm 99 % 99 % 98.1 [degF] 114 mm[Hg] 60 mm[Hg] Lilli Quijano [facility] 6 11:25:19 Social History None recorded. Functional [...] N Thyroid Problems Y Eye Disorders N Lung Disease (Emphysema/Asthma/Chronic B ronchitis N Kidney Disease/Dialysis N Stroke or Paralysis N Heart disease, [...] SNOMED-CT Code Diagnosis ICD10 Code Diagnosis Note [id number] Keara Jeffery PA-C [address] [place] [id number] 05/07/2015 11:01:03 05/07/2015 12:04:03 Productive cough -green sputum 269303350 R09.3 Supportive measures discussed. Advised cough medicine can be sedating and should use caution regarding operating heavy machinery or driving. Bacterial infectious disease 02315458 A48.8 Discussed diagnosis and treatment options with [...] a higher risk of becoming . Anemia 458809256 D64.9 not at critical levels; no reason to suspect GI bleed at this time; patient aware of red flags and will f/u with her PCP next week. Fatigue 09324280 R53.83 Health Concerns Section Related Observation LastModified by Organization Detai ls LastModified Time None Recorded Concern Status LastModified by Organization Details LastModified Time None Recorded Advance Directives Directive None Recorded Payers Encounter Date Sequence Insurance Name Policy Number Policy Soni Covered Member ID Soni Member ID Guarantor Name 05/07/2015 1 [employer] (O) [id number] Sommer Cortez [id number] Sommer Cortez Notes Date Note Type Note Provider Name and Address Organization Details Recorded Time 05/07/2015 text/html Upper Respirator y SymptomsReported bypatient.Location:[facility] Quality:productive cough;colored phlegm;congested;hacki ng cough;wheezy [...] youngest child is post heart transplant 11/04 keara montenegro [place] [facility] 05/12/2015 17:38:32 OBGyn Episode No OBEpisode recorded.
--- OUTSIDE RECORDS SUMMARY | 2024-08-07 11:12 | XMS_ITS | Encounter Summary ---
Author Organization [facility] Address [address] [place] [address] Care Team Providers Care Still Operator Gin Name Role Phone Moise Valdovinos Yoav Primary Care Provider Encounter Details Date Type Department Care Team (Late st Contact Info) Description 05/13/2017 Orders Only [facility] [employer] DES[employer]ER [address] [place] [address] Provider, [facility] Social History Tobacco Use Types [...] of this encounter Results * Due to [place] state law, this organization might not be sharing negative HIV tests. * US TRANSVAGINAL (FOR IVF USE ONLY)FC (05/23/2017 7:48 AM EST) Narrative [facility] - 05/23/2017 7:48 AM EST Study performed for the acquisition of images only. ??No professional Interpretation required. us Repsc Provider IMG US OBGYN ORDERABLES Final Re sult [facility] * US TRANSVAGINAL (FOR IVF USE ONLY)FC (05/21/2017 8:01 AM EST) Narrative [facility] - 05/21/2017 8:01 AM EST Study performed for the acquisition of images only. ??No professional Interpretation required. us Repsc Provider IMG US OBGYN ORDERABLES Final Re sult Performing Organization Address [facility] de Phone Number [facility] * US TRANSVAGINAL (FOR IVF USE ONLY)FC (05/17/2017 7:27 AM EST) [facility] - 05/17/2017 7:27 AM EST Study performed for the acquisition of images only. ??No professional Interpretation required. us Repct Provider [facility] O[facility] Final Re sult Performing Organization Address [facility] Phone Number [facility] documented in this encounter Visit Diagnoses Diagnosis Female infertility Female infertility of unspecified origin Female infertility Female infertility of unspecified origin Female infertility Female infertility of unspecified origin Female infertility Female infertility of unspecified origin documented in this encounter Care Teams Still Operator Gin Relationship Specialty Start Date End Date Moise Valdovinos MOISE VALDOVINOS [address] [place] [address] [address] RODRIGUEZ, [place] [address] PCP - General Internal Medicine 05/17/17 documented as of this encounter
--- OUTSIDE RECORDS SUMMARY | 2024-08-07 11:12 | XMS_ITS ---
Author Organization Moise Mcbride MD Address [address] [place], [place] [id number] Care Team Providers Care Make Up Editor Name Role Phone Moise Mcbride Primary Care Provider [phone] Results Component Value Reference Range Notes Complete Blood Count Auto Di ff Reviewed date:06/19/2024 01:45:24 PM Interpretation: Performing Lab:[facility], [address] [place] [phone] Notes/Report: White Blood Count 7.4 4.8-10.8 X10*3/uL [...] PROFILE Reviewed date:06/19/2024 01:42:46 PM Interpretation: Performing Lab:[facility], [address] [place] [phone] Notes/Report: Iron 270 30-160 mcg/dL Total Iron Binding Capacity 397 228-428 mcg/d L Percent Iron Saturation 68 15-50 % Unsaturated Iron Binding 127 REASON FOR VISIT CBC AUTO DIFF, IRON PROFILE Encounters Encounter Location Date Provider Diagnosis Moise Mcbride MD [address] [place] [address] [place] [phone] 06/19/2024 Moise Mcbride Iron deficiency anemia due to chronic blood loss D50.0 Assessments Encounter Date Diagnosis (ICD Code) Assessment Notes Treatment Notes Treatment Clinical Notes Section Notes 06/19/2024 Iron deficiency anemia due to chronic blood loss (ICD-10 - D50.0) Plan Of Treatment Next Appt Details Provider Name:Moise morrissey, 11/09/2024 09:00:00 AM, [address] [place] [address], [address], [phone], Provider Name:Moise morrissey, 04/01/2025 07:30:00 AM, [address] [place] [address], [address], [phone], Provider Name:Moise morrissey, 04/08/2025 09:30:00 AM, [address] [place] [address], [address], [place], [phone], Progress Notes * GENE FERNANDESOB: 8 (48 yo F)Acc No.[id number]:06/19/2024 Progress Note Patient:CELESTINA BHAKTA Provider:?Moise Mcbride MD :1975???Age:48 Y???Sex:Female D ate:06/19/2024 Address:[address], [place], [id number] Subjective: * Chief Complaints: * ???1. CBC AUTO DIFF, IRON ND OFILE. * Medical History:? Objective: * Vitals:? Assessment: * Assessment: 1.?Iron deficiency anemia du e to chronic blood loss - D50.0 (Primary)??? Plan: * Treatment: * Procedure Codes:?82329 VENIP UNCT, ROUTINE* * * The named appointment provid er may or may not be the originator of this progress note, and it is not deemed complete until electronically signed by the appointment provider. Sign off status: Pending * Provider:?Moise Mcbride MD Date:?0 06/19/2024 Generated for Magda smith/Karen/Heriitting on:?08/07/2024 11:12 AM EDT
[2024-08-07 11:13] LABS: Iron 16 mcg/dL (30-160); Percent Iron Saturation 4 % (15-50); Total Iron Binding Capacity 395 mcg/dL (228-428); Unsaturated Iron Binding 379 ug/dL
== END 2024-08-07 10:41 | disposition home or self-care (01) ==
LOC: HO.LNP 10:40
PROVIDERS: Visit Provider Internal Medicine
DX: D50.0 Iron deficiency anemia secondary to blood loss (chronic) (principal)
CPT/HCPCS: 83540; 85025

== ENCOUNTER 2025-02-09 07:45 | Outpatient (REF) | payer OTHER, SELFPAY ==
[2025-02-09 11:27] LABS: MANUAL DIFF FLAG NO
[2025-02-09 11:54] LABS: Hematocrit 31.8 % (37.0-47.0); Hemoglobin 9.2 g/dl (12.0-16.0); Imm Gran Abs Auto 0.02 X10*3/uL (0.00-0.03); Imm Gran Pct Auto 0.3 % (0.0-0.4); Lymphocytes Absolute Auto 1.4 X10*3/uL (1.2-4.9); Mean Corpuscular HGB Conc 28.9 g/dl (31.0-35.0); Mean Corpuscular Hemoglobin 20.8 pg (27.0-33.0); Mean Corpuscular Volume 71.8 fL (80.0-98.0); NRBC Abs Auto 0.000 X10*3/uL (0.0-0.012); NRBC Pct Auto 0.0 /100WBC (0.0-0.2); Platelet Count 426 X10*3/uL (160-400); Red Blood Count 4.43 X10*6/uL (4.20-5.50); White Blood Count 6.7 X10*3/uL (4.8-10.8)
[2025-02-09 12:05] LABS: Iron 22 mcg/dL (30-160); Percent Iron Saturation 6 % (15-50); Total Iron Binding Capacity 389 mcg/dL (228-428); Unsaturated Iron Binding 367 ug/dL
== END 2025-02-09 07:46 | disposition home or self-care (01) ==
LOC: HO.LNP 07:45
PROVIDERS: Visit Provider Internal Medicine
DX: K50.10 Crohn's disease of large intestine without complications (principal)
CPT/HCPCS: 83540; 85025